=== PATIENT | male | born 1975 | race Caucasian/White ===

== ENCOUNTER → 2023-10-22 09:24 | Outpatient (REF) | payer MEDICAID, SELFPAY ==
[2023-10-22 09:50] VITALS: BP 120/87; BP_SYST 68
[2023-10-22 10:24] LABS: Body Fluid Mononuclear 88.2 %; Body Fluid Polymorphonuclear 11.8 %; Body Fluid WBC 119 /CUMM
[2023-10-22 10:31] LABS: Body Fluid Second Tech CMB
[2023-10-22 10:47] VITALS: BP 109/70
== END ==
LOC: RADI 09:24
PROVIDERS: ATTENDING PHYSICIAN Specialist
DX: R18.8 Other ascites (principal)
CPT/HCPCS: 49083; 87015; 87070; 87205; 89051

== ENCOUNTER → 2023-10-29 07:22 | Outpatient (REF) | payer MEDICAID, SELFPAY ==
[2023-10-29 07:44] VITALS: BP 121/76; BP_SYST 52
[2023-10-29 08:53] VITALS: BP 101/58
[2023-10-29 10:33] LABS: Body Fluid Mononuclear 83.1 %; Body Fluid Polymorphonuclear 16.9 %; Body Fluid WBC 89 /CUMM
[2023-10-29 10:34] LABS: Body Fluid Second Tech SS
== END ==
LOC: RADI 07:22
PROVIDERS: ATTENDING PHYSICIAN Specialist
DX: R18.8 Other ascites (principal)
CPT/HCPCS: 49083; 87015; 87070; 87205; 89051

== ENCOUNTER → 2023-11-05 07:23 | Outpatient (REF) | payer MEDICAID, SELFPAY ==
[2023-11-05 07:42] VITALS: BP 128/72; BP_SYST 55
[2023-11-05 08:47] VITALS: BP 111/53
[2023-11-05 08:50] LABS: Body Fluid Mononuclear 89.4 %; Body Fluid Polymorphonuclear 10.6 %; Body Fluid WBC 103 /CUMM
[2023-11-05 08:53] LABS: Body Fluid Second Tech SD
== END ==
LOC: RADI 07:23
PROVIDERS: ATTENDING PHYSICIAN Specialist
DX: R18.8 Other ascites (principal)
CPT/HCPCS: 49083; 87015; 87070; 87205; 89051

== ENCOUNTER → 2023-11-12 07:40 | Outpatient (REF) | payer SELFPAY ==
[2023-11-12 07:55] VITALS: BP 116/75; BP_SYST 47
[2023-11-12 09:45] VITALS: BP 104/60
[2023-11-12 09:51] LABS: Body Fluid Mononuclear 80.8 %; Body Fluid Polymorphonuclear 19.2 %; Body Fluid WBC 130 /CUMM
[2023-11-12 10:03] LABS: Body Fluid Second Tech EF
== END ==
LOC: RADI 07:40
PROVIDERS: ATTENDING PHYSICIAN Specialist
DX: R18.8 Other ascites (principal)
CPT/HCPCS: 49083; 87015; 87070; 87205; 89051

== ENCOUNTER 2023-11-12 09:57 | Outpatient (RCR) | payer SELFPAY ==
[2023-10-22 10:45] VITALS: BP 112/61
[2023-10-22] MEDS: FLEXBUMIN 50 IV (11:08)
[2023-10-22 11:14] VITALS: BP 105/57
[2023-10-22 11:59] VITALS: BP 101/51
[2023-10-22] MEDS: FLEXBUMIN 100 IV ×2 (11:59→13:26)
[2023-10-22 13:28] VITALS: BP 105/46
[2023-10-22 14:55] VITALS: BP 114/48
[2023-10-29 09:00] VITALS: BP 112/58
[2023-10-29 09:35] VITALS: BP 101/56
[2023-10-29] MEDS: FLEXBUMIN 100 IV ×2 (09:38→11:06)
[2023-10-29 11:07] VITALS: BP 106/49
[2023-10-29 12:23] VITALS: BP 125/62
[2023-10-29] MEDS: FLEXBUMIN 50 IV (12:24)
[2023-10-29 13:20] VITALS: BP 111/50
[2023-11-05 09:05] VITALS: BP 110/54
[2023-11-05] MEDS: FLEXBUMIN 100 IV (09:25)
[2023-11-05 09:28] VITALS: BP 110/4
[2023-11-05] MEDS: FLEXBUMIN 50 IV (10:50)
[2023-11-05 10:53] VITALS: BP 116/60
[2023-11-05 11:36] VITALS: BP 98/55
[2023-11-12] MEDS: FLEXBUMIN 50 IV (10:21)
[2023-11-12 10:25] VITALS: BP 99/52
[2023-11-12 10:27] VITALS: BP 99/52
[2023-11-12] MEDS: FLEXBUMIN 100 IV (11:06)
[2023-11-12 11:10] VITALS: BP 95/57
[2023-11-12 12:35] VITALS: BP 99/52
[2023-11-12 14:26] VITALS: BP 99/52
== END 2023-11-19 23:59 | disposition home or self-care (01) ==
LOC: OID 09:57
PROVIDERS: ATTENDING PHYSICIAN Nurse Practitioner Adult Health
DX: K70.31 Alcoholic cirrhosis of liver with ascites (principal)
CPT/HCPCS: 96365; 96366; P9047

== ENCOUNTER → 2023-11-19 07:08 | Outpatient (REF) | payer MEDICAID, SELFPAY ==
[2023-11-19 07:46] VITALS: BP 113/74; BP_SYST 60
[2023-11-19 08:30] VITALS: BP 104/52
[2023-11-19 09:11] LABS: Body Fluid WBC 147 /CUMM
[2023-11-19 09:12] LABS: Body Fluid Mononuclear 76.9 %; Body Fluid Polymorphonuclear 23.1 %; Body Fluid Second Tech SD
== END ==
LOC: RADI 07:08
PROVIDERS: ATTENDING PHYSICIAN Specialist
DX: R18.8 Other ascites (principal)
CPT/HCPCS: 49083; 87015; 87070; 87205; 89051

== ENCOUNTER → 2023-11-26 07:18 | Outpatient (REF) | payer MEDICAID, SELFPAY ==
[2023-11-26 08:58] LABS: % Basophils 0.7 % (0-2); % Eosinophils 2.4 % (0-6); % Immature Granulocytes 0.2 % (0-0.5); % Lymphocytes 31.9 % (20.5-51.1); % Neutrophils 52.8 % (42.2-75.2); Absolute Eosinophils 0.1 10^3/uL (0-0.7); Absolute Lymphocytes 1.8 10^3/uL (1.2-3.4); Absolute Monocytes 0.7 10^3/uL (0.1-0.6); Absolute Neutrophils 2.9 10^3/uL (1.4-6.5); Hematocrit 37.7 % (39.0-52.0); Hemoglobin 12.7 g/dL (13.0-18.0); Mean Corp Hgb Conc. 33.7 g/dL (33.0-37.0); Mean Corpuscular Hgb 24.7 pg (27.0-31.0); Mean Corpuscular Volume 73.3 fL (80.0-94.0); Nucleated Red Blood Cells % 0 % (-); Red Blood Cell Count 5.14 10^6/uL (4.70-6.10); Red Cell Dist. Width 24.5 % (11.5-14.5); White Blood Cell Count 5.5 10^3/uL (4.8-10.8)
[2023-11-26 09:07] LABS: INR 1.35; PT 16.8 Sec (11.4-14.6)
[2023-11-26 09:08] LABS: APTT 40.1 Sec (23.4-35.0)
[2023-11-26 09:34] LABS: Platelet Count 93 10^3/uL (130-400)
[2023-11-26 09:54] LABS: ALT (SGPT) < 10 U/L (0-50); AST (SGOT) 48 U/L (17-59); Albumin 2.9 g/dl (3.5-5.0); Alkaline Phosphatase 115 U/L (38-126); Blood Urea Nitrogen 7 mg/dl (9-20); Calcium 8.6 mg/dl (8.4-10.2); Carbon Dioxide 24 mmol/L (22-30); Chloride 105 mmol/L (98-107); Glucose 77 mg/dl (70-99); Potassium 4.1 mmol/L (3.5-5.1); Sodium 137 mmol/L (135-145); Total Protein 6.7 g/dl (6.3-8.2); eGFR > 60.00
[2023-11-26 09:56] VITALS: BP 131/80; BP_SYST 61
== END ==
LOC: RADI 07:18
PROVIDERS: ATTENDING PHYSICIAN Specialist
DX: R18.8 Other ascites (principal)
CPT/HCPCS: 36415; 49083; 80053; 82105; 85025; 85610; 85730

== ENCOUNTER → 2023-12-03 07:16 | Outpatient (REF) | payer SELFPAY ==
[2023-12-03 07:26] VITALS: BP 139/94; BP_SYST 65
[2023-12-03 08:37] VITALS: BP 122/68
[2023-12-03 09:52] LABS: Body Fluid Mononuclear 84.6 %; Body Fluid Polymorphonuclear 15.4 %; Body Fluid WBC 97 /CUMM
[2023-12-03 10:16] LABS: Body Fluid Second Tech CMB
== END ==
LOC: RADI 07:16
PROVIDERS: ATTENDING PHYSICIAN Specialist
DX: R18.8 Other ascites (principal)
CPT/HCPCS: 49083; 87015; 87070; 87205; 89051

== ENCOUNTER → 2023-12-10 07:35 | Outpatient (REF) | payer MEDICAID, SELFPAY ==
[2023-12-10 07:49] VITALS: BP 145/93; BP_SYST 79
[2023-12-10 08:50] VITALS: BP 124/79; BP_SYST 68
[2023-12-10 08:55] VITALS: BP 124/79
[2023-12-10 09:39] LABS: Body Fluid Mononuclear 83.9 %; Body Fluid Polymorphonuclear 16.1 %; Body Fluid WBC 112 /CUMM
[2023-12-10 09:57] LABS: Body Fluid Second Tech LD
== END ==
LOC: RADI 07:35
PROVIDERS: ATTENDING PHYSICIAN Specialist
DX: R18.8 Other ascites (principal)
CPT/HCPCS: 49083; 89051

== ENCOUNTER → 2023-12-17 07:17 | Outpatient (REF) | payer MEDICAID, SELFPAY ==
[2023-12-17 08:00] VITALS: BP 134/86; BP_SYST 77
[2023-12-17 09:17] VITALS: BP 126/76; BP_SYST 77
[2023-12-17 12:00] LABS: Body Fluid Mononuclear 20.9 %; Body Fluid Polymorphonuclear 79.1 %; Body Fluid WBC 1332 /CUMM
[2023-12-17 12:15] LABS: Body Fluid Second Tech SS
== END ==
LOC: RADI 07:17
PROVIDERS: Internal Medicine Endocrinology, Diabetes & Metabolism; ATTENDING PHYSICIAN Specialist
DX: R18.8 Other ascites (principal)
CPT/HCPCS: 49083; 89051

== ENCOUNTER 2023-12-17 09:18 | Outpatient (RCR) | payer MEDICAID, SELFPAY ==
[2023-11-26 10:46] LABS: Body Fluid Polymorphonuclear 20.4 %; Body Fluid WBC 103 /CUMM
[2023-11-26 10:47] LABS: Body Fluid Mononuclear 79.6 %
[2023-11-26 11:49] LABS: Body Fluid Second Tech EM
[2023-12-03 09:14] VITALS: BP 126/64
[2023-12-03] MEDS: FLEXBUMIN 50 IV (09:14)
[2023-12-03 09:17] VITALS: BP 126/64
[2023-12-03] MEDS: FLEXBUMIN 100 IV ×2 (10:01→11:19)
[2023-12-03 10:04] VITALS: BP 107/58
[2023-12-03 11:21] VITALS: BP 119/48
[2023-12-03 12:42] VITALS: BP 105/51
[2023-12-10 09:15] VITALS: BP 142/74
[2023-12-10] MEDS: FLEXBUMIN 50 IV (09:28)
[2023-12-10 09:35] VITALS: BP 125/7
[2023-12-10 10:18] VITALS: BP 113/66
[2023-12-10] MEDS: FLEXBUMIN 100 IV ×2 (10:18→11:56)
[2023-12-10 11:57] VITALS: BP 114/66
[2023-12-10 13:25] VITALS: BP 106/62
[2023-12-17 09:30] VITALS: BP 96/72
[2023-12-17] MEDS: FLEXBUMIN 50 IV (09:42)
[2023-12-17 09:45] VITALS: BP 96/72
[2023-12-17] MEDS: FLEXBUMIN 100 IV ×2 (10:27→11:53)
[2023-12-17 10:29] VITALS: BP 129/61
[2023-12-17 11:54] VITALS: BP 120/59
[2023-12-17 13:18] VITALS: BP 137/78
== END 2023-12-20 23:59 | disposition home or self-care (01) ==
LOC: OID 09:18
PROVIDERS: Specialist; ATTENDING PHYSICIAN Nurse Practitioner Adult Health
DX: K70.31 Alcoholic cirrhosis of liver with ascites (principal)
CPT/HCPCS: 87015; 87070; 87205; 89051; 96365; 96366; P9047

== ENCOUNTER → 2023-12-24 07:16 | Outpatient (REF) | payer MEDICAID, SELFPAY ==
[2023-12-24 08:45] VITALS: BP 144/86; BP_SYST 85
[2023-12-24 10:09] VITALS: BP 129/83; BP_SYST 75
[2023-12-24 11:19] LABS: Body Fluid Mononuclear 91.5 %; Body Fluid Polymorphonuclear 8.5 %; Body Fluid WBC 94 /CUMM
[2023-12-24 11:20] LABS: Body Fluid Second Tech EM
== END ==
LOC: RADI 07:16
PROVIDERS: ATTENDING PHYSICIAN Specialist
DX: R18.8 Other ascites (principal)
CPT/HCPCS: 49083; 89051

== ENCOUNTER → 2023-12-31 07:13 | Outpatient (REF) | payer MEDICAID, SELFPAY ==
[2023-12-31 07:45] VITALS: BP 142/95; BP_SYST 86
[2023-12-31 09:02] VITALS: BP 125/74
[2023-12-31 09:28] LABS: Body Fluid Mononuclear 87.8 %; Body Fluid Polymorphonuclear 12.2 %; Body Fluid WBC 107 /CUMM
[2023-12-31 09:31] LABS: Body Fluid Second Tech HB
== END ==
LOC: RADI 07:13
PROVIDERS: ATTENDING PHYSICIAN Specialist
DX: R18.8 Other ascites (principal)
CPT/HCPCS: 49083; 89051

== ENCOUNTER → 2024-01-07 07:26 | Outpatient (REF) | payer MEDICAID, SELFPAY ==
[2024-01-07 07:40] VITALS: BP 131/84; BP_SYST 63
[2024-01-07 08:45] VITALS: BP 120/79; BP_SYST 66
[2024-01-07 08:47] LABS: Body Fluid Mononuclear 93.5 %; Body Fluid Polymorphonuclear 6.5 %; Body Fluid WBC 123 /CUMM
[2024-01-07 08:48] LABS: Body Fluid Second Tech LD
[2024-01-07 09:03] VITALS: BP 120/79
== END ==
LOC: RADI 07:26
PROVIDERS: ATTENDING PHYSICIAN Specialist
DX: R18.8 Other ascites (principal)
CPT/HCPCS: 49083; 89051

== ENCOUNTER → 2024-01-14 07:14 | Outpatient (REF) | payer MEDICAID, SELFPAY ==
[2024-01-14 07:30] VITALS: BP 167/94; BP_SYST 89
[2024-01-14 08:36] VITALS: BP 130/99
[2024-01-14 08:59] LABS: Body Fluid Mononuclear 93.5 %; Body Fluid Polymorphonuclear 6.5 %; Body Fluid WBC 107 /CUMM
[2024-01-14 13:15] LABS: Body Fluid Second Tech EM
== END ==
LOC: RADI 07:14
PROVIDERS: ATTENDING PHYSICIAN Specialist
DX: R18.8 Other ascites (principal)
CPT/HCPCS: 49083; 87015; 87070; 87205; 89051

== ENCOUNTER 2024-01-14 08:52 | Outpatient (RCR) | payer MEDICAID, SELFPAY ==
[2023-12-24 10:30] VITALS: BP 133/75
[2023-12-24] MEDS: FLEXBUMIN 100 IV ×2 (10:38→12:06)
[2023-12-24 12:09] VITALS: BP 129/58
[2023-12-24] MEDS: FLEXBUMIN 50 IV (13:32)
[2023-12-24 13:33] VITALS: BP 122/64
[2023-12-24 14:36] VITALS: BP 123/62
[2023-12-31 09:25] VITALS: BP 142/58
[2023-12-31 09:32] VITALS: BP 142/58
[2023-12-31] MEDS: FLEXBUMIN 50 IV (09:32)
[2023-12-31 10:18] VITALS: BP 110/53
[2023-12-31] MEDS: FLEXBUMIN 100 IV ×2 (10:18→11:41)
[2023-12-31 11:41] VITALS: BP 116/58
[2023-12-31 13:15] VITALS: BP 114/55
[2024-01-07 09:00] VITALS: BP 128/76
[2024-01-07 09:10] VITALS: BP 128/76
[2024-01-07] MEDS: FLEXBUMIN 50 IV (09:10)
[2024-01-07] MEDS: FLEXBUMIN 100 IV ×2 (10:02→11:20)
[2024-01-07 10:03] VITALS: BP 120/61
[2024-01-07 11:23] VITALS: BP 104/50
[2024-01-07 12:45] VITALS: BP 94/60
[2024-01-14] MEDS: FLEXBUMIN 50 IV (09:22)
[2024-01-14 09:25] VITALS: BP 133/74
[2024-01-14] MEDS: FLEXBUMIN 100 IV ×2 (10:08→11:35)
[2024-01-14 10:09] VITALS: BP 133/53
[2024-01-14 11:30] VITALS: BP 121/58
[2024-01-14 13:00] VITALS: BP 133/67
== END 2024-01-15 08:24 | disposition home or self-care (01) ==
LOC: OID 08:52
PROVIDERS: ATTENDING PHYSICIAN Nurse Practitioner Adult Health
DX: K70.31 Alcoholic cirrhosis of liver with ascites (principal); I85.11 Secondary esophageal varices with bleeding
CPT/HCPCS: 96365; 96366; P9047

== ENCOUNTER → 2024-01-21 07:20 | Outpatient (REF) | payer MEDICAID, SELFPAY ==
[2024-01-21 08:31] VITALS: BP 135/87; BP_SYST 76
[2024-01-21 09:40] VITALS: BP 123/61
[2024-01-21 10:27] LABS: Body Fluid WBC 125 /CUMM
[2024-01-21 10:28] LABS: Body Fluid Mononuclear 91.2 %; Body Fluid Polymorphonuclear 8.8 %
[2024-01-21 10:29] LABS: Body Fluid Second Tech HB
== END ==
LOC: RADI 07:20
PROVIDERS: ATTENDING PHYSICIAN Specialist
DX: R18.8 Other ascites (principal)
CPT/HCPCS: 49083; 89051

== ENCOUNTER → 2024-01-28 07:25 | Outpatient (REF) | payer OTHER, SELFPAY ==
[2024-01-28 07:37] VITALS: BP 140/66; BP_SYST 83
[2024-01-28 08:39] VITALS: BP 132/81
[2024-01-28 09:45] LABS: Body Fluid Mononuclear 93.5 %; Body Fluid Polymorphonuclear 6.5 %; Body Fluid WBC 154 /CUMM
[2024-01-28 09:58] LABS: Body Fluid Second Tech AMA
== END ==
LOC: RADI 07:25
PROVIDERS: ATTENDING PHYSICIAN Specialist
DX: R18.8 Other ascites (principal)
CPT/HCPCS: 49083; 89051

== ENCOUNTER → 2024-02-04 07:42 | Outpatient (REF) | payer OTHER, SELFPAY ==
[2024-02-04 08:00] VITALS: BP 138/83; BP_SYST 80
[2024-02-04 10:41] LABS: Body Fluid Mononuclear 83.5 %; Body Fluid Polymorphonuclear 16.5 %; Body Fluid WBC 91 /CUMM
[2024-02-04 11:06] LABS: Body Fluid Second Tech JKH
== END ==
LOC: RADI 07:42
PROVIDERS: ATTENDING PHYSICIAN Specialist
DX: R18.8 Other ascites (principal)
CPT/HCPCS: 49083; 89051

== ENCOUNTER → 2024-02-11 07:11 | Outpatient (REF) | payer OTHER, SELFPAY ==
[2024-02-11 07:37] VITALS: BP 117/79; BP_SYST 76
[2024-02-11 08:42] VITALS: BP 113/66; BP_SYST 70
[2024-02-11 08:51] LABS: Body Fluid Mononuclear 83.3 %; Body Fluid Polymorphonuclear 16.7 %; Body Fluid WBC 126 /CUMM
[2024-02-11 08:52] LABS: Body Fluid Second Tech CF
== END ==
LOC: RADI 07:11
PROVIDERS: ATTENDING PHYSICIAN Specialist
DX: R18.8 Other ascites (principal)
CPT/HCPCS: 49083; 89051

== ENCOUNTER → 2024-02-18 07:09 | Outpatient (REF) | payer OTHER, SELFPAY ==
[2024-02-18 04:00] VITALS: BP 122/82; BP_SYST 71
[2024-02-18 08:46] VITALS: BP 124/63
[2024-02-18 09:54] LABS: Body Fluid Mononuclear 89.7 %; Body Fluid Polymorphonuclear 10.3 %; Body Fluid WBC 126 /CUMM
[2024-02-18 09:55] LABS: Body Fluid Second Tech AMA
== END ==
LOC: RADI 07:09
PROVIDERS: ATTENDING PHYSICIAN Specialist
DX: R18.8 Other ascites (principal)
CPT/HCPCS: 49083; 89051

== ENCOUNTER 2024-02-18 08:46 | Outpatient (RCR) | payer OTHER, SELFPAY ==
[2024-01-21 10:00] VITALS: BP 93/72
[2024-01-21 10:12] VITALS: BP 93/72
[2024-01-21 10:13] LABS: % Basophils 0.4 % (0-2); % Eosinophils 1.1 % (0-6); % Immature Granulocytes 0.2 % (0-0.5); % Lymphocytes 23.5 % (20.5-51.1); % Monocytes 12.2 % (1.7-9.3); % Neutrophils 62.6 % (42.2-75.2); Absolute Eosinophils 0.1 10^3/uL (0-0.7); Absolute Lymphocytes 1.3 10^3/uL (1.2-3.4); Absolute Monocytes 0.7 10^3/uL (0.1-0.6); Absolute Neutrophils 3.5 10^3/uL (1.4-6.5); Hematocrit 34.6 % (39.0-52.0); Hemoglobin 11.4 g/dL (13.0-18.0); Mean Corp Hgb Conc. 32.9 g/dL (33.0-37.0); Mean Corpuscular Hgb 24.9 pg (27.0-31.0); Mean Corpuscular Volume 75.5 fL (80.0-94.0); Mean Platelet Volume 8.9 fL (7.4-10.4); Platelet Count 86 10^3/uL (130-400); Red Blood Cell Count 4.58 10^6/uL (4.70-6.10); Red Cell Dist. Width 15.2 % (11.5-14.5); White Blood Cell Count 5.7 10^3/uL (4.8-10.8)
[2024-01-21] MEDS: FLEXBUMIN 50 IV (10:13)
[2024-01-21 10:51] LABS: INR 1.57; PT 18.9 Sec (11.4-14.6)
[2024-01-21] MEDS: FLEXBUMIN 100 IV (10:57)
[2024-01-21 10:58] VITALS: BP 105/55
[2024-01-21 11:09] LABS: ALT (SGPT) 10 U/L (0-50); AST (SGOT) 57 U/L (17-59); Albumin 2.9 g/dl (3.5-5.0); Alkaline Phosphatase 94 U/L (38-126); Calcium 8.3 mg/dl (8.4-10.2); Carbon Dioxide 29 mmol/L (22-30); Chloride 99 mmol/L (98-107); Glucose 101 mg/dl (70-99); Potassium 3.7 mmol/L (3.5-5.1); Sodium 130 mmol/L (135-145); Total Bilirubin 1.3 mg/dl (0.2-1.3); Total Protein 6.4 g/dl (6.3-8.2); eGFR > 60.00
[2024-01-21 11:14] LABS: Blood Urea Nitrogen 15 mg/dl (9-20)
[2024-01-21 12:20] VITALS: BP 118/51
[2024-02-04 09:15] VITALS: BP 119/57
[2024-02-04] MEDS: FLEXBUMIN 100 IV ×2 (09:29→10:47)
[2024-02-04 09:30] VITALS: BP 119/57
[2024-02-04 10:49] VITALS: BP 119/47
[2024-02-04 12:13] VITALS: BP 112/53
[2024-02-04] MEDS: FLEXBUMIN 50 IV (12:13)
[2024-02-04 12:58] VITALS: BP 111/51
[2024-02-11] MEDS: FLEXBUMIN 50 IV (08:44)
[2024-02-11 08:47] VITALS: BP 117/57
[2024-02-11] MEDS: FLEXBUMIN 100 IV (09:27)
[2024-02-11 09:29] VITALS: BP 106/54
[2024-02-11 10:55] VITALS: BP 112/45
[2024-02-18 09:00] VITALS: BP 129/73
[2024-02-18] MEDS: FLEXBUMIN 100 IV ×2 (09:16→10:45)
[2024-02-18 09:17] VITALS: BP 120/73
[2024-02-18 10:43] VITALS: BP 110/55
[2024-02-18] MEDS: FLEXBUMIN 50 IV (12:11)
[2024-02-18 12:13] VITALS: BP 110/51
[2024-02-18 12:55] VITALS: BP 112/58
== END 2024-02-19 09:43 | disposition home or self-care (01) ==
LOC: OID 08:46
PROVIDERS: Specialist; ATTENDING PHYSICIAN Nurse Practitioner Adult Health
DX: K70.31 Alcoholic cirrhosis of liver with ascites (principal); I85.11 Secondary esophageal varices with bleeding
CPT/HCPCS: 36415; 80053; 85025; 85610; 96365; 96366; P9047

== ENCOUNTER → 2024-02-26 06:46 | Outpatient (REF) | payer OTHER, SELFPAY ==
[2024-02-26 07:25] VITALS: BP 159/93; BP_SYST 80
[2024-02-26 08:24] VITALS: BP 139/77; BP_SYST 73
[2024-02-26 08:47] VITALS: BP 139/77
[2024-02-26 09:39] LABS: Body Fluid Mononuclear 91.4 %; Body Fluid Polymorphonuclear 8.6 %; Body Fluid WBC 128 /CUMM
[2024-02-26 09:47] LABS: Body Fluid Second Tech AMA
== END ==
LOC: RADI 06:46
PROVIDERS: ATTENDING PHYSICIAN Specialist
DX: K70.31 Alcoholic cirrhosis of liver with ascites (principal)
CPT/HCPCS: 49083; 89051

== ENCOUNTER → 2024-03-03 07:24 | Outpatient (REF) | payer OTHER, SELFPAY ==
[2024-03-03 07:40] VITALS: BP 132/76; BP_SYST 87
[2024-03-03 09:15] VITALS: BP 121/64
[2024-03-03 10:29] LABS: Body Fluid Mononuclear 93.3 %; Body Fluid Polymorphonuclear 6.7 %; Body Fluid WBC 177 /CUMM
[2024-03-03 10:51] LABS: Body Fluid Second Tech AMA
== END ==
LOC: RADI 07:24
PROVIDERS: ATTENDING PHYSICIAN Specialist
DX: R18.8 Other ascites (principal)
CPT/HCPCS: 49083; 89051

== ENCOUNTER → 2024-03-10 07:26 | Outpatient (REF) | payer OTHER, SELFPAY ==
[2024-03-10 07:44] VITALS: BP 147/91; BP_SYST 102
[2024-03-10 08:52] VITALS: BP 127/76
[2024-03-10 10:37] LABS: Body Fluid Mononuclear 93.1 %; Body Fluid Polymorphonuclear 6.9 %; Body Fluid WBC 116 /CUMM
[2024-03-10 10:40] LABS: Body Fluid Second Tech AMA
== END ==
LOC: RADI 07:26
PROVIDERS: ATTENDING PHYSICIAN Specialist
DX: R18.8 Other ascites (principal)
CPT/HCPCS: 49083; 89051

== ENCOUNTER → 2024-03-17 07:23 | Outpatient (REF) | payer OTHER, SELFPAY ==
[2024-03-17 07:45] VITALS: BP 118/77; BP_SYST 81
[2024-03-17 08:33] VITALS: BP 126/65
[2024-03-17 09:46] LABS: Body Fluid Mononuclear 89.1 %; Body Fluid Polymorphonuclear 10.9 %; Body Fluid WBC 119 /CUMM
[2024-03-17 09:48] LABS: Body Fluid Second Tech AMA
== END ==
LOC: RADI 07:23
PROVIDERS: ATTENDING PHYSICIAN Specialist
DX: R18.8 Other ascites (principal)
CPT/HCPCS: 49083; 87015; 87070; 87205; 89051

== ENCOUNTER 2024-03-17 09:07 | Outpatient (RCR) | payer OTHER, SELFPAY ==
[2024-02-26] MEDS: FLEXBUMIN 50 IV (08:58)
[2024-02-26 08:59] VITALS: BP 136/74
[2024-02-26] MEDS: FLEXBUMIN 100 IV ×2 (09:44→11:20)
[2024-02-26 09:46] VITALS: BP 82/55
[2024-02-26 11:20] VITALS: BP 124/64
[2024-02-26 12:42] VITALS: BP 121/61
[2024-03-03 09:40] VITALS: BP 136/75
[2024-03-03] MEDS: FLEXBUMIN 100 IV (09:48)
[2024-03-03 09:51] VITALS: BP 136/75
[2024-03-03] MEDS: FLEXBUMIN 50 IV (11:18)
[2024-03-03 11:20] VITALS: BP 109/63
[2024-03-03 12:00] VITALS: BP 119/59
[2024-03-10 09:14] VITALS: BP 133/77
[2024-03-10 09:18] VITALS: BP 133/77
[2024-03-10] MEDS: FLEXBUMIN 100 IV (09:18)
[2024-03-10] MEDS: FLEXBUMIN 50 IV (10:47)
[2024-03-10 10:48] VITALS: BP 121/64
[2024-03-10 11:30] VITALS: BP 124/56
[2024-03-17] MEDS: FLEXBUMIN 100 IV (09:27)
[2024-03-17 09:32] VITALS: BP 119/64
[2024-03-17 09:40] VITALS: BP 125/64
[2024-03-17 11:12] VITALS: BP 117/42
[2024-03-17] MEDS: FLEXBUMIN 50 IV (11:13)
[2024-03-17 12:10] VITALS: BP 110/49
== END 2024-03-18 11:38 | disposition home or self-care (01) ==
LOC: OID 09:07
PROVIDERS: ATTENDING PHYSICIAN Nurse Practitioner Adult Health
DX: K70.31 Alcoholic cirrhosis of liver with ascites (principal); I85.11 Secondary esophageal varices with bleeding
CPT/HCPCS: 96365; 96366; P9047

== ENCOUNTER → 2024-03-25 07:11 | Outpatient (REF) | payer OTHER, SELFPAY ==
[2024-03-25 07:38] VITALS: BP 134/87; BP_SYST 84
[2024-03-25 08:40] VITALS: BP 131/80
[2024-03-25 11:07] LABS: Body Fluid Mononuclear 93.9 %; Body Fluid Polymorphonuclear 6.1 %; Body Fluid WBC 82 /CUMM
[2024-03-25 11:14] LABS: Body Fluid Second Tech AMA
== END ==
LOC: RADI 07:11
PROVIDERS: ATTENDING PHYSICIAN Specialist
DX: R18.8 Other ascites (principal)
CPT/HCPCS: 49083; 87015; 87070; 87205; 89051

== ENCOUNTER → 2024-03-31 07:25 | Outpatient (REF) | payer OTHER, SELFPAY ==
[2024-03-31 07:54] VITALS: BP 137/90; BP_SYST 80
[2024-03-31 08:10] LABS: % Basophils 0.8 % (0-2); % Eosinophils 1.7 % (0-6); % Immature Granulocytes 0.3 % (0-0.5); % Lymphocytes 28.2 % (20.5-51.1); % Monocytes 13.4 % (1.7-9.3); % Neutrophils 55.6 % (42.2-75.2); Absolute Basophils 0.1 10^3/uL (0-0.2); Absolute Eosinophils 0.1 10^3/uL (0-0.7); Hematocrit 31.1 % (39.0-52.0); Hemoglobin 9.2 g/dL (13.0-18.0); Mean Corp Hgb Conc. 29.6 g/dL (33.0-37.0); Mean Corpuscular Hgb 19.8 pg (27.0-31.0); Mean Platelet Volume 9.1 fL (7.4-10.4); Nucleated Red Blood Cells % 0 % (-); Platelet Count 146 10^3/uL (130-400); Red Blood Cell Count 4.64 10^6/uL (4.70-6.10); Red Cell Dist. Width 18.5 % (11.5-14.5); White Blood Cell Count 7.1 10^3/uL (4.8-10.8)
[2024-03-31 08:18] LABS: APTT 36.9 Sec (23.4-35.0); INR 1.48
[2024-03-31 08:44] LABS: ALT (SGPT) < 10 U/L (0-50); AST (SGOT) 43 U/L (17-59); Albumin 3.2 g/dl (3.5-5.0); Alkaline Phosphatase 101 U/L (38-126); Blood Urea Nitrogen 9 mg/dl (9-20); Calcium 8.6 mg/dl (8.4-10.2); Carbon Dioxide 27 mmol/L (22-30); Chloride 99 mmol/L (98-107); Glucose 116 mg/dl (70-99); Potassium 4.3 mmol/L (3.5-5.1); Sodium 133 mmol/L (135-145); Total Bilirubin 1.1 mg/dl (0.2-1.3); Total Protein 6.7 g/dl (6.3-8.2); eGFR > 60.00
[2024-03-31 09:20] VITALS: BP 112/60
[2024-03-31 10:23] LABS: Body Fluid Mononuclear 88.8 %; Body Fluid Polymorphonuclear 11.2 %; Body Fluid WBC 116 /CUMM
[2024-03-31 10:27] LABS: Body Fluid Second Tech AMA
== END ==
LOC: RADI 07:25
PROVIDERS: ATTENDING PHYSICIAN Specialist
DX: R18.8 Other ascites (principal)
CPT/HCPCS: 36415; 49083; 80053; 85025; 85610; 85730; 87015; 87070; 87205; 89051; P9047

== ENCOUNTER → 2024-04-07 07:45 | Outpatient (REF) | payer OTHER, SELFPAY ==
[2024-04-07 08:06] VITALS: BP 128/87; BP_SYST 77
[2024-04-07 09:10] VITALS: BP 139/77
[2024-04-07 11:50] LABS: Body Fluid Mononuclear 93.4 %; Body Fluid Polymorphonuclear 6.6 %; Body Fluid WBC 136 /CUMM
[2024-04-07 11:52] LABS: Body Fluid Second Tech SS
== END ==
LOC: RADI 07:45
PROVIDERS: ATTENDING PHYSICIAN Specialist
DX: R18.8 Other ascites (principal)
CPT/HCPCS: 49083; 87015; 87070; 87205; 89051

== ENCOUNTER → 2024-04-14 07:08 | Outpatient (REF) | payer OTHER, SELFPAY ==
[2024-04-14 07:40] VITALS: BP 148/84; BP_SYST 80
[2024-04-14 08:52] VITALS: BP 136/74
[2024-04-14 09:57] LABS: Body Fluid Mononuclear 90.3 %; Body Fluid Polymorphonuclear 9.7 %; Body Fluid WBC 113 /CUMM
[2024-04-14 10:00] LABS: Body Fluid Second Tech EF
== END ==
LOC: RADI 07:08
PROVIDERS: ATTENDING PHYSICIAN Specialist
DX: R18.8 Other ascites (principal)
CPT/HCPCS: 49083; 87015; 87070; 87205; 89051

== ENCOUNTER 2024-04-14 08:56 | Outpatient (RCR) | payer OTHER, SELFPAY ==
[2024-03-25] MEDS: FLEXBUMIN 50 IV (09:47)
[2024-03-25 09:51] VITALS: BP 131/62
[2024-03-25] MEDS: FLEXBUMIN 100 IV ×2 (10:33→12:00)
[2024-03-25 10:37] VITALS: BP 98/54
[2024-03-25 12:02] VITALS: BP 116/53
[2024-03-25 13:30] VITALS: BP 113/53
[2024-03-31 09:40] VITALS: BP 123/62
[2024-03-31] MEDS: FLEXBUMIN 100 IV ×2 (09:47→11:15)
[2024-03-31 09:50] VITALS: BP 123/62
[2024-03-31 11:17] VITALS: BP 117/56
[2024-03-31 12:37] VITALS: BP 106/52
[2024-03-31] MEDS: FLEXBUMIN 50 IV (12:38)
[2024-03-31 13:30] VITALS: BP 116/48
[2024-04-07 09:30] VITALS: BP 136/68
[2024-04-07] MEDS: FLEXBUMIN 100 IV ×2 (09:34→11:00)
[2024-04-07 09:36] VITALS: BP 136/68
[2024-04-07 11:03] VITALS: BP 119/59
[2024-04-07] MEDS: FLEXBUMIN 50 IV (12:21)
[2024-04-07 12:24] VITALS: BP 110/4
[2024-04-07 13:10] VITALS: BP 112/50
[2024-04-14 09:00] VITALS: BP 128/62
[2024-04-14] MEDS: FLEXBUMIN 100 IV ×2 (09:19→10:59)
[2024-04-14 09:21] VITALS: BP 128/62
[2024-04-14 11:00] VITALS: BP 126/59
[2024-04-14 12:29] VITALS: BP 113/49
[2024-04-14] MEDS: FLEXBUMIN 50 IV (12:30)
[2024-04-14 13:12] VITALS: BP 137/48
== END 2024-04-15 08:35 | disposition home or self-care (01) ==
LOC: OID 08:56
PROVIDERS: ATTENDING PHYSICIAN Nurse Practitioner Adult Health
DX: K70.31 Alcoholic cirrhosis of liver with ascites (principal); I85.11 Secondary esophageal varices with bleeding
CPT/HCPCS: 96365; 96366; P9047

== ENCOUNTER → 2024-04-21 07:28 | Outpatient (REF) | payer OTHER, SELFPAY ==
[2024-04-21 08:13] VITALS: BP 132/75; BP_SYST 78
[2024-04-21 09:04] VITALS: BP 114/95
[2024-04-21 10:54] LABS: Body Fluid Mononuclear 91.9 %; Body Fluid Polymorphonuclear 8.1 %; Body Fluid WBC 111 /CUMM
[2024-04-21 10:56] LABS: Body Fluid Second Tech CMB
== END ==
LOC: RADI 07:28
PROVIDERS: ATTENDING PHYSICIAN Specialist
DX: R18.8 Other ascites (principal)
CPT/HCPCS: 49083; 87015; 87070; 87205; 89051

== ENCOUNTER → 2024-04-28 07:24 | Outpatient (REF) | payer OTHER, SELFPAY ==
[2024-04-28 07:37] VITALS: BP 137/92; BP_SYST 93
[2024-04-28 08:56] LABS: Body Fluid WBC 131 /CUMM
[2024-04-28 08:57] LABS: Body Fluid Mononuclear 91.6 %; Body Fluid Polymorphonuclear 8.4 %
[2024-04-28 09:16] LABS: Body Fluid Second Tech EM
== END ==
LOC: RADI 07:24
PROVIDERS: ATTENDING PHYSICIAN Specialist
DX: R18.8 Other ascites (principal)
CPT/HCPCS: 49083; 87015; 87070; 87205; 89051

== ENCOUNTER → 2024-05-05 07:23 | Outpatient (REF) | payer OTHER, SELFPAY ==
[2024-05-05 07:45] VITALS: BP 134/89; BP_SYST 102
[2024-05-05 08:31] VITALS: BP 133/78
[2024-05-05 09:01] LABS: Body Fluid Mononuclear 91.9 %; Body Fluid Polymorphonuclear 8.1 %; Body Fluid WBC 136 /CUMM
[2024-05-05 09:12] LABS: Body Fluid Second Tech AMA
== END ==
LOC: RADI 07:23
PROVIDERS: ATTENDING PHYSICIAN Specialist
DX: R18.8 Other ascites (principal)
CPT/HCPCS: 49083; 87015; 87070; 87205; 89051

== ENCOUNTER → 2024-05-12 07:11 | Outpatient (REF) | payer OTHER, SELFPAY ==
[2024-05-12 08:13] VITALS: BP 146/90; BP_SYST 87
[2024-05-12 09:25] VITALS: BP 120/75
[2024-05-12 11:18] LABS: Body Fluid Mononuclear 90.4 %; Body Fluid Polymorphonuclear 9.6 %; Body Fluid WBC 125 /CUMM
[2024-05-12 11:21] LABS: Body Fluid Second Tech CF
== END ==
LOC: RADI 07:11
PROVIDERS: ATTENDING PHYSICIAN Specialist
DX: R18.8 Other ascites (principal)
CPT/HCPCS: 49083; 87015; 87070; 87205; 89051

== ENCOUNTER → 2024-05-19 07:22 | Outpatient (REF) | payer OTHER, SELFPAY ==
[2024-05-19 07:45] VITALS: BP 135/79; BP_SYST 85
[2024-05-19 08:45] VITALS: BP 130/69
[2024-05-19 12:09] LABS: Body Fluid Mononuclear 91.9 %; Body Fluid Polymorphonuclear 8.1 %; Body Fluid WBC 135 /CUMM
[2024-05-19 12:31] LABS: Body Fluid Second Tech EM
== END ==
LOC: RADI 07:22
PROVIDERS: ATTENDING PHYSICIAN Specialist
DX: R18.8 Other ascites (principal)
CPT/HCPCS: 49083; 87015; 87070; 87205; 89051

== ENCOUNTER 2024-05-19 09:03 | Outpatient (RCR) | payer OTHER, SELFPAY ==
[2024-04-21 09:45] VITALS: BP 124/66
[2024-04-21] MEDS: FLEXBUMIN 100 IV (09:55)
[2024-04-21 09:57] VITALS: BP 124/66
[2024-04-21] MEDS: FLEXBUMIN 50 IV (11:18)
[2024-04-21 11:21] VITALS: BP 119/52
[2024-04-21 12:05] VITALS: BP 126/78
[2024-04-28 08:45] VITALS: BP 130/75
[2024-04-28] MEDS: FLEXBUMIN 100 IV ×2 (09:27→11:07)
[2024-04-28 09:34] VITALS: BP 130/75
[2024-04-28 11:09] VITALS: BP 100/71
[2024-04-28] MEDS: FLEXBUMIN 50 IV (12:43)
[2024-04-28 12:45] VITALS: BP 122/57
[2024-04-28 13:30] VITALS: BP 128/67
[2024-05-05 09:00] VITALS: BP 148/75
[2024-05-05 09:07] VITALS: BP 148/75
[2024-05-05] MEDS: FLEXBUMIN 100 IV ×2 (09:07→10:56)
[2024-05-05 10:57] VITALS: BP 136/64
[2024-05-05] MEDS: FLEXBUMIN 50 IV (12:39)
[2024-05-05 12:40] VITALS: BP 126/63
[2024-05-05 13:36] VITALS: BP 131/61
[2024-05-12] MEDS: FLEXBUMIN 50 IV (10:35)
[2024-05-12 10:40] VITALS: BP 123/78
[2024-05-12] MEDS: FLEXBUMIN 100 IV ×2 (11:30→13:17)
[2024-05-12 11:33] VITALS: BP 125/64
[2024-05-12 13:18] VITALS: BP 130/60
[2024-05-12 15:05] VITALS: BP 106/65
[2024-05-19 09:10] VITALS: BP 125/59
[2024-05-19] MEDS: FLEXBUMIN 100 IV ×2 (09:15→10:58)
[2024-05-19 09:16] VITALS: BP 125/59
[2024-05-19 09:30] VITALS: BP 125/59
[2024-05-19 11:01] VITALS: BP 103/47
[2024-05-19] MEDS: FLEXBUMIN 50 IV (12:38)
[2024-05-19 12:41] VITALS: BP 115/60
[2024-05-19 13:40] VITALS: BP 107/52
== END 2024-05-20 08:10 | disposition home or self-care (01) ==
LOC: OID 09:03
PROVIDERS: ATTENDING PHYSICIAN Nurse Practitioner Adult Health
DX: K70.31 Alcoholic cirrhosis of liver with ascites (principal); I85.11 Secondary esophageal varices with bleeding
CPT/HCPCS: 96365; 96366; P9047

== ENCOUNTER → 2024-05-26 07:18 | Outpatient (REF) | payer OTHER, SELFPAY ==
[2024-05-26 07:40] VITALS: BP 144/86; BP_SYST 79
[2024-05-26 08:35] VITALS: BP 129/67
[2024-05-26 10:50] LABS: Body Fluid Mononuclear 94.2 %; Body Fluid Polymorphonuclear 5.8 %; Body Fluid WBC 120 /CUMM
[2024-05-26 11:00] LABS: Body Fluid Second Tech ASW
== END ==
LOC: RADI 07:18
PROVIDERS: ATTENDING PHYSICIAN Specialist
DX: R18.8 Other ascites (principal)
CPT/HCPCS: 49083; 87015; 87070; 87205; 89051

== ENCOUNTER → 2024-06-02 07:23 | Outpatient (REF) | payer OTHER, SELFPAY ==
[2024-06-02 07:42] VITALS: BP 145/83; BP_SYST 79
[2024-06-02 08:31] LABS: Hematocrit 32.1 % (39.0-52.0); Mean Corpuscular Hgb 17.4 pg (27.0-31.0); Mean Corpuscular Volume 62.1 fL (80.0-94.0); Mean Platelet Volume 9.2 fL (7.4-10.4); Platelet Count 186 10^3/uL (130-400); Red Blood Cell Count 5.17 10^6/uL (4.70-6.10); Red Cell Dist. Width 21.5 % (11.5-14.5); White Blood Cell Count 6.9 10^3/uL (4.8-10.8)
[2024-06-02 08:33] LABS: INR 1.47; PT 17.9 Sec (11.4-14.6)
[2024-06-02 08:34] LABS: APTT 36.3 Sec (23.4-35.0)
[2024-06-02 09:04] VITALS: BP 130/74
[2024-06-02 09:08] LABS: ALT (SGPT) < 10 U/L (0-50); AST (SGOT) 57 U/L (17-59); Albumin 3.4 g/dl (3.5-5.0); Alkaline Phosphatase 104 U/L (38-126); Blood Urea Nitrogen 11 mg/dl (9-20); Calcium 8.5 mg/dl (8.4-10.2); Carbon Dioxide 29 mmol/L (22-30); Chloride 100 mmol/L (98-107); Glucose 100 mg/dl (70-99); Potassium 3.9 mmol/L (3.5-5.1); Sodium 139 mmol/L (135-145); eGFR > 60.00
[2024-06-02 09:30] LABS: Body Fluid Mononuclear 95.2 %; Body Fluid Polymorphonuclear 4.8 %; Body Fluid WBC 127 /CUMM
[2024-06-02 09:42] LABS: Body Fluid Second Tech RLT
== END ==
LOC: RADI 07:23
PROVIDERS: ATTENDING PHYSICIAN Specialist
DX: R18.8 Other ascites (principal)
CPT/HCPCS: 36415; 49083; 80053; 85027; 85610; 85730; 87015; 87070; 87205; 89051

== ENCOUNTER → 2024-06-09 07:14 | Outpatient (REF) | payer OTHER, SELFPAY ==
[2024-06-09 07:52] VITALS: BP 125/68; BP_SYST 85
[2024-06-09 09:00] VITALS: BP 138/76
[2024-06-09 10:47] LABS: Body Fluid Polymorphonuclear 6.9 %; Body Fluid WBC 146 /CUMM
[2024-06-09 10:48] LABS: Body Fluid Mononuclear 93.1 %
[2024-06-09 10:55] LABS: Body Fluid Second Tech BP
== END ==
LOC: RADI 07:14
PROVIDERS: ATTENDING PHYSICIAN Specialist
DX: R18.8 Other ascites (principal)
CPT/HCPCS: 49083; 87015; 87070; 87205; 89051

== ENCOUNTER → 2024-06-16 07:45 | Outpatient (REF) | payer OTHER, SELFPAY ==
[2024-06-16 08:05] VITALS: BP 143/90; BP_SYST 87
[2024-06-16 09:26] LABS: Body Fluid Mononuclear 92.1 %; Body Fluid Polymorphonuclear 7.9 %; Body Fluid WBC 139 /CUMM
[2024-06-16 09:30] LABS: Body Fluid Second Tech AMA
== END ==
LOC: RADI 07:45
PROVIDERS: ATTENDING PHYSICIAN Specialist
DX: R18.8 Other ascites (principal)
CPT/HCPCS: 49083; 87015; 87070; 87205; 89051

== ENCOUNTER 2024-06-16 09:07 | Outpatient (RCR) | payer OTHER, SELFPAY ==
[2024-05-26 08:45] VITALS: BP 134/71
[2024-05-26] MEDS: FLEXBUMIN 100 IV ×2 (09:01→10:50)
[2024-05-26 09:05] VITALS: BP 134/71
[2024-05-26 10:51] VITALS: BP 131/60
[2024-05-26] MEDS: FLEXBUMIN 50 IV (12:26)
[2024-05-26 12:29] VITALS: BP 115/65
[2024-05-26 13:20] VITALS: BP 109/51
[2024-06-02 09:40] VITALS: BP 137/68
[2024-06-02] MEDS: FLEXBUMIN 100 IV ×2 (09:53→11:43)
[2024-06-02 09:59] VITALS: BP 137/68
[2024-06-02 11:42] VITALS: BP 129/71
[2024-06-02] MEDS: FLEXBUMIN 50 IV (13:20)
[2024-06-02 13:21] VITALS: BP 136/61
[2024-06-02 14:15] VITALS: BP 121/54
[2024-06-09 09:25] VITALS: BP 132/62
[2024-06-09 09:32] VITALS: BP 132/88
[2024-06-09] MEDS: FLEXBUMIN 100 IV ×2 (09:32→11:18)
[2024-06-09 09:33] VITALS: BP 132/88
[2024-06-09 11:19] VITALS: BP 119/55
[2024-06-09] MEDS: FLEXBUMIN 50 IV (12:59)
[2024-06-09 13:01] VITALS: BP 115/63
[2024-06-09 13:54] VITALS: BP 115/53
[2024-06-16 09:20] VITALS: BP 120/75
[2024-06-16] MEDS: FLEXBUMIN 100 IV ×2 (09:36→11:19)
[2024-06-16 09:37] VITALS: BP 120/75
[2024-06-16 11:20] VITALS: BP 120/62
[2024-06-16] MEDS: FLEXBUMIN 50 IV (13:05)
[2024-06-16 13:06] VITALS: BP 128/63
[2024-06-16 14:10] VITALS: BP 127/64
== END 2024-06-17 09:47 | disposition home or self-care (01) ==
LOC: OID 09:07
PROVIDERS: ATTENDING PHYSICIAN Nurse Practitioner Adult Health
DX: K70.31 Alcoholic cirrhosis of liver with ascites (principal); I85.11 Secondary esophageal varices with bleeding
CPT/HCPCS: 96365; 96366; P9047

== ENCOUNTER → 2024-06-23 07:18 | Outpatient (REF) | payer OTHER, SELFPAY ==
[2024-06-23 07:49] VITALS: BP 134/81; BP_SYST 84
[2024-06-23 10:38] LABS: Body Fluid Mononuclear 94.6 %; Body Fluid Polymorphonuclear 5.4 %; Body Fluid WBC 111 /CUMM
[2024-06-23 10:52] LABS: Body Fluid Second Tech ASW
== END ==
LOC: RADI 07:18
PROVIDERS: ATTENDING PHYSICIAN Specialist
DX: R18.8 Other ascites (principal)
CPT/HCPCS: 49083; 87015; 87070; 87205; 89051

== ENCOUNTER → 2024-06-30 07:21 | Outpatient (REF) | payer OTHER, SELFPAY ==
[2024-06-30 07:45] VITALS: BP 128/80; BP_SYST 73
[2024-06-30 09:12] LABS: Body Fluid Mononuclear 94.3 %; Body Fluid Polymorphonuclear 5.7 %; Body Fluid WBC 158 /CUMM
[2024-06-30 09:15] LABS: Body Fluid Second Tech EM
== END ==
LOC: RADI 07:21
PROVIDERS: ATTENDING PHYSICIAN Specialist
DX: R18.8 Other ascites (principal)
CPT/HCPCS: 49083; 87015; 87070; 87205; 89051

== ENCOUNTER → 2024-07-07 07:13 | Outpatient (REF) | payer OTHER, SELFPAY ==
[2024-07-07 08:02] VITALS: BP 137/95; BP_SYST 73
[2024-07-07 08:35] VITALS: BP 128/81
[2024-07-07 09:09] LABS: Body Fluid Mononuclear 92.2 %; Body Fluid Polymorphonuclear 7.8 %; Body Fluid WBC 166 /CUMM
[2024-07-07 09:18] LABS: Body Fluid Second Tech CF
== END ==
LOC: RADI 07:13
PROVIDERS: ATTENDING PHYSICIAN Specialist
DX: R18.8 Other ascites (principal)
CPT/HCPCS: 49083; 87015; 87070; 87205; 89051; P9047

== ENCOUNTER → 2024-07-14 07:21 | Outpatient (REF) | payer OTHER, SELFPAY ==
[2024-07-14 07:35] VITALS: BP 142/91; BP_SYST 85
[2024-07-14 07:53] VITALS: BMI 28.1
[2024-07-14 08:39] VITALS: BP 129/82
[2024-07-14 08:52] VITALS: BMI 23.9
[2024-07-14 10:51] LABS: Body Fluid Mononuclear 88.4 %; Body Fluid Polymorphonuclear 11.6 %; Body Fluid WBC 172 /CUMM
[2024-07-14 11:39] LABS: Body Fluid Second Tech EF
== END ==
LOC: RADI 07:21
PROVIDERS: ATTENDING PHYSICIAN Specialist
DX: R18.8 Other ascites (principal)
CPT/HCPCS: 49083; 87015; 87070; 87205; 89051

== ENCOUNTER → 2024-07-21 07:19 | Outpatient (REF) | payer OTHER, SELFPAY ==
[2024-07-21 07:30] VITALS: BP 146/101; BP_SYST 99
[2024-07-21 08:22] VITALS: BP 140/80
[2024-07-21 09:02] LABS: Body Fluid Mononuclear 92.9 %; Body Fluid Polymorphonuclear 7.1 %; Body Fluid WBC 140 /CUMM
[2024-07-21 09:55] LABS: Body Fluid Second Tech AMA
== END ==
LOC: RADI 07:19
PROVIDERS: ATTENDING PHYSICIAN Specialist
DX: R18.8 Other ascites (principal)
CPT/HCPCS: 49083; 87015; 87070; 87205; 89051

== ENCOUNTER 2024-07-21 08:48 | Outpatient (RCR) | payer OTHER, SELFPAY ==
[2024-06-23] MEDS: FLEXBUMIN 100 IV ×2 (09:18→11:06)
[2024-06-23 09:21] VITALS: BP 129/68
[2024-06-23 09:32] VITALS: BP 129/68
[2024-06-23 11:07] VITALS: BP 127/65
[2024-06-23] MEDS: FLEXBUMIN 50 IV (12:49)
[2024-06-23 12:50] VITALS: BP 117/61
[2024-06-23 13:45] VITALS: BP 126/56
[2024-06-30] MEDS: FLEXBUMIN 100 IV ×2 (09:25→11:11)
[2024-06-30 09:27] VITALS: BP 138/79
[2024-06-30 11:13] VITALS: BP 126/56
[2024-06-30] MEDS: FLEXBUMIN 50 IV (12:53)
[2024-06-30 12:59] VITALS: BP 126/63
[2024-07-07 09:15] VITALS: BP 145/69
[2024-07-07] MEDS: FLEXBUMIN 100 IV ×2 (09:20→10:51)
[2024-07-07 09:22] VITALS: BP 145/69
[2024-07-07 10:53] VITALS: BP 131/64
[2024-07-07 12:37] VITALS: BP 117/60
[2024-07-07] MEDS: FLEXBUMIN 50 IV (12:37)
[2024-07-07 13:30] VITALS: BP 128/64
[2024-07-14 09:42] VITALS: BP 133/74
[2024-07-14] MEDS: FLEXBUMIN 50 IV (09:42)
[2024-07-14 10:35] VITALS: BP 110/60
[2024-07-14] MEDS: FLEXBUMIN 100 IV ×2 (10:35→12:15)
[2024-07-14 10:36] VITALS: BP 114/76
[2024-07-14 12:17] VITALS: BP 110/60
[2024-07-14 13:56] VITALS: BP 125/63
[2024-07-21 09:10] VITALS: BP 140/75
[2024-07-21] MEDS: FLEXBUMIN 100 IV (09:35)
[2024-07-21 09:40] VITALS: BP 140/75
[2024-07-21] MEDS: FLEXBUMIN 50 IV (11:22)
[2024-07-21 11:23] VITALS: BP 116/65
[2024-07-21 12:20] VITALS: BP 122/63
== END 2024-07-21 23:59 | disposition home or self-care (01) ==
LOC: OID 08:48
PROVIDERS: ATTENDING PHYSICIAN Nurse Practitioner Adult Health
DX: K70.31 Alcoholic cirrhosis of liver with ascites (principal); I85.11 Secondary esophageal varices with bleeding
CPT/HCPCS: 96365; 96366; P9047

== ENCOUNTER 2024-07-25 15:12 | Inpatient (IN) | payer OTHER, SELFPAY ==
[2024-07-25] VITALS (17 sets, daily range): BP systolic 106–137; BP diastolic 63–80; BMI 27.2; BMI 26.4
--- NOTE | 2024-07-25 13:07 | ED.GENMED ---
History of Present Illness
General
Chief Complaint: Rectal Bleeding
Source: patient
Exam Limitations: none
Time Seen by Provider: 07/25/24 12:55
Nursing documentation reviewed up to this point in time: agreed with
History of Present Illness
History of Present Illness:
Patient with history of liver cirrhosis, who receives weekly therapeutic paracentesis, presents to ED secondary to recurrent 'dark stool' with recent 3 bowel movements, which unfortunately has happened to the patient on multiple occasions. Patient
is complaining of lightheadedness and shortness of breath, more than his usual. Denies fever or chills. Denies abdominal pain. Denies nausea or vomiting. Denies recent change in medications or diet. Patient does not take any blood thinning
medications. Patient does state that his cat was jumping on top of his stomach this weekend and is wondering whether that may have caused the bleeding. Patient states that he was in the hospital 1 year ago with similar symptoms, when he required
blood transfusion.
Past History
Past History
ED Past Medical History: Psychiatric (Anxiety/depression, GI bleed) and Other (History of esophageal varices, liver cirrhosis)
ED Past Surgical History: None
Patient has exhibited threatening behavior?: No
Social History
Tobacco: Smoker
Alcohol: Chronic alcoholic
Drug: Former user
Personal: Other
Living: with family
Employment: Employed
Family History
Family History: Other
Review of Systems
Review of Systems
Allergies reviewed?: Yes
All Other Systems: ROS reviewed and negative except as documented in HPI and ROS
Constitutional: Reports no symptoms
Respiratory: Reports trouble breathing
Cardiac: Reports no symptoms; Denies chest pain or palpitations
ABD/GI: Reports bloody stools; Denies abdominal pain, vomiting or diarrhea
Musculoskeletal: Reports no symptoms
Skin: Reports no symptoms
Neurological: Reports dizzy
Phy Exam
Physical Exam
Physical Exam:
Physical Exam
General: mild distress, not acutely ill. afebrile
Head: nc/at. eomi. icteric sclera noted
Neck: supple. normal range of motion.
Heart: s1/s2 regular rate and rhythm, no murmur. equal radial pulses.
Lungs: no acute respiratory distress. clear bilaterally
Abdomen: normal bowel sounds. not tender. rectal exam (DELILAH Landeros, at bedside): dark brown stool, heme positive
Neuro: alert and oriented. no focal neurological deficits
Skin: no rash. jaundice
Psychiatric: well kept. interactive and cooperative
Extremities: no edema. no calf tenderness.
Course
Orders/Labs/Results
Orders:
Orders
07/25/24 Breakfast
NPO
Allow oral meds: Yes
Allow clear liquids: Sips of Clears
NPO with Ice Chips: Yes
07/25/24 13:07
Type+Screen Urgent
Complete Blood Count/With Diff Urgent
Comprehensive Metabolic Panel Urgent
Ferritin Urgent
Folate Urgent
Iron Urgent
Magnesium Urgent
Comment: MAG ADDED ON BY FLOOR 4:40PM 07-25-24
Protime/PTT Urgent
Total Iron Binding Urgent
Vitamin B12 Urgent
Comment: IRON,FERRITIN,TIBC,FOLATE,B12 ADDED ON BY FLOOR 2:50PM 07-25-24
07/25/24 14:08
* Blood Bank Products Urgent
Blood Bank Products: *Packed RBC Leuko(PRBC's)
Quantity: 2
Transfuse Today: Yes
Reason: Bleeding
Pantoprazole [Protonix IV] 40 mg IV NOW STA
07/25/24 14:09
IV Insert/Care/Rem.- Treatment PRN
07/25/24 14:35
CefTRIAXone [Rocephin] 1,000 mg IV NOW STA
Octreotide [Sandostatin] 50 mcg IV NOW STA
07/25/24 14:37
GASTROINTESTINAL CONSULT Routine
Consulting Provider: Cong Michaels
Was physician already notified: Yes
07/25/24 14:39
Sterile Water [Sterile Water For Injection] 10 ml IV NOW STA
07/25/24 14:49
Add On- LAB Routine
Tests Added?: iron, ferritin, tibc, folate, vit b12
07/25/24 14:50
CefTRIAXone [Rocephin] 1,000 mg IV NOW STA
07/25/24 14:54
Admit/Transfer Patient As Directed
Co-Sign Provider:
Level of Care: Inpatient admission
Assign to:: IMU- Intermediate Care
Physician / Group: Tamra
Diagnosis: GI Bleed
Reason for Hospitalization: Blood Transfuse, EGD
Expected length of stay greater than two midnights?: Yes
ELOS- Estimated Length of Stay in days: 3
I certify the patient meets the requirements for IP care: Yes
PRN Pain Medication Management As Directed
May give lesser potent ordered pain med per pt: Yes
preference::
Protocol:: Medication orders for pain may be administered in a
manner that supports deferring to patient preference
when the pt is:
- Requesting an ordered lesser potent pain medication.
Least to most potent pain medications are defined
as: acetaminophen < NSAID < tramadol < opioids
(morphine, oxycodone, hydromorphone).
- Requesting a lesser dose of the same medication IF
ORDERED.
- Requesting a less intrusive route of administration
if both routes are prescribed by the provider (PO <
IV).
07/25/24 14:55
Code Status As Directed
Resuscitation Status: Full Code
07/25/24 15:00
Flush (0.9% Sodium Chloride) [Flush (Nss)] See Dose Instructions IV PER PROTOCOL
Octreotide Acetate [Sandostatin] 600 mcg 0.9% Sodium Chloride 500 ml [Nss] 500 ml IV Q12H
07/25/24 15:02
Potassium Chloride 10% Elixir [KCl Elixir] 40 meq PO NOW STA
07/25/24 15:15
Pantoprazole 80 mg/100 ml Nss [Protonix] 80 mg in 100 ml IV Q10H
07/25/24 17:10
Acetaminophen [Tylenol] 650 mg PO Q4HPRN PRN
07/25/24 17:10
Activity As Directed
Activity Level: Out of Bed- Chair
With Assistance
I&O [Intake/ Output] As Directed
Frequency: q12h
Orthostatic Vital Signs As Directed
Orthostatic VS Frequency: BID
Pneumatic Compression Sleeves As Directed
Type: Knee high
Vital Signs As Directed
Frequency: Per unit guidelines
Weight As Directed
Frequency: Daily
DX Deep Vein Thrombosis Video Routine
07/25/24 19:00
H&H Q6H
07/25/24 20:00
Pantoprazole [Protonix IV] 40 mg IV Q12
07/26/24 01:00
H&H Q6H
07/26/24 06:00
Complete Blood Count/No Diff IN AM
Comprehensive Metabolic Panel IN AM
07/26/24 07:00
H&H Q6H
07/26/24 08:00
Buprenorphine [Subutex] 4 mg SL DAILY
07/26/24 13:00
H&H Q6H
07/26/24 14:00
CefTRIAXone [Rocephin] 1,000 mg IV Q24H
Abnormal Lab Results
07/25/24
13:07
RBC 3.67 L 10^6/uL
(4.70-6.10)
Hgb 6.7 L* g/dL
(13.0-18.0)
Hct 22.8 L %
(39.0-52.0)
MCV 62.1 L fL
(80.0-94.0)
MCH 18.3 L pg
(27.0-31.0)
MCHC 29.4 L g/dL
(33.0-37.0)
RDW 21.5 H %
(11.5-14.5)
Abs Immat Gran (auto) 0.1 H 10^3/uL
(0-0.05)
Absolute Lymphs (auto) 0.8 L 10^3/uL
(1.2-3.4)
Absolute Monos (auto) 1.0 H 10^3/uL
(0.1-0.6)
Immature Gran % 0.7 H %
(0-0.5)
Lymphocytes % 11.3 L %
(20.5-51.1)
Monocytes % 13.2 H %
(1.7-9.3)
PT 17.5 H Sec
(11.4-14.6)
Sodium 131 L mmol/L
(135-145)
Potassium 3.3 L mmol/L
(3.5-5.1)
Chloride 93 L mmol/L
(98-107)
Glucose 145 H mg/dl
(70-99)
Iron < 20 L ug/dl
(49-181)
Ferritin 11.0 L ng/ml
(17.9-464.0)
Total Bilirubin 2.0 H mg/dl
(0.2-1.3)
Albumin 3.3 L g/dl
(3.5-5.0)
Crossmatch IS Only See Detail
07/25/24 13:07
07/25/24 13:07
Vital Signs
Initial and Last Documented VS:
Initial Vital Signs
Temp Pulse Resp BP Pulse Ox
99.0 F 101 18 137/80 98
07/25/24 12:37 07/25/24 12:37 07/25/24 12:37 07/25/24 12:37 07/25/24 12:37
Last Documented Vital Signs
Temp Pulse Resp BP Pulse Ox
98.2 F 77 16 114/65 96
07/25/24 19:56 07/25/24 18:48 07/25/24 18:48 07/25/24 18:48 07/25/24 18:48
MDM/Problems Addressed
MDM/Problems Addressed:
H/H noted. Pt remains hemodynamically stable. Will transfuse.
Blood transfusion consent on the chart. Liver cirrhosis
Discussed with (GI) - recommends starting patient on octreotide/protonix gtt.
Critical care statement: A total of 40 minutes of critical care time was provided for this patient. This includes management of unstable vital signs, evaluation of the patient at bedside, reviewing the patient's pertinent medical records, discussion
with consultants, review of old EKGs and review of pertinent medical records. This time with separate from time utilized to perform the aforementioned documented procedures
*Critical Care Note
Total Time (30-74mins, 75-104mins- exclusive of procedures): 40 min
ED Attending Note
-
Portions of this chart may have been created with voice recognition software.� Occasional wrong word or��sound alike� substitutions may have occurred due to the inherent limitations of voice recognition software.
Discharge Plan
Departure
Patient Disposition: Admit
Date of Disposition: 07/25/24
Time of Disposition: 14:08
Presentation/result/management discussed w/ accepting MD/DO: Hospitalist
Discharge Problem:
GI bleed, Anemia
Interventions
Interventions:
*Risk Screen - Suicide Last Done: 07/25/24 12:40
*General Assessment Last Done: 07/25/24 12:40
*Neglect/Abuse Screening Last Done: 07/25/24 12:40
ED- Fall Risk Assessment Last Done: 07/25/24 13:00
*ED COVID-19 Vaccine History Last Done: 07/25/24 13:00
*Nursing Disposition Last Done: 07/25/24 17:10
JT-Tlggac-Dirwgaunfj Assessment Last Done: 07/25/24 13:00
ED- Cardiac Assessment Last Done: 07/25/24 13:00
ED- Pulmonary Assessment Last Done: 07/25/24 13:00
Discharge Date and Time
Discharge Date/Time: 07/25/24 17:10
[2024-07-25 13:32] LABS: INR 1.45; PT 17.5 Sec (11.4-14.6)
[2024-07-25 13:33] LABS: ALT (SGPT) 13 U/L (0-50); APTT 33.9 Sec (23.4-35.0); AST (SGOT) 55 U/L (17-59); Albumin 3.3 g/dl (3.5-5.0); Alkaline Phosphatase 102 U/L (38-126); Blood Urea Nitrogen 17 mg/dl (9-20); Calcium 8.5 mg/dl (8.4-10.2); Carbon Dioxide 25 mmol/L (22-30); Chloride 93 mmol/L (98-107); Estimated Creatinine Clearance > 125 ml/min; Glucose 145 mg/dl (70-99); Potassium 3.3 mmol/L (3.5-5.1); Sodium 131 mmol/L (135-145); Total Protein 7.1 g/dl (6.3-8.2); eGFR > 60.00
[2024-07-25 13:53] LABS: % Basophils 0.7 % (0-2); % Eosinophils 0.8 % (0-6); % Immature Granulocytes 0.7 % (0-0.5); % Lymphocytes 11.3 % (20.5-51.1); % Monocytes 13.2 % (1.7-9.3); % Neutrophils 73.3 % (42.2-75.2); Absolute Basophils 0.1 10^3/uL (0-0.2); Absolute Eosinophils 0.1 10^3/uL (0-0.7); Absolute Immature Granulocytes 0.1 10^3/uL (0-0.05); Absolute Lymphocytes 0.8 10^3/uL (1.2-3.4); Absolute Neutrophils 5.3 10^3/uL (1.4-6.5); Hematocrit 22.8 % (39.0-52.0); Hemoglobin 6.7 g/dL (13.0-18.0); Mean Corp Hgb Conc. 29.4 g/dL (33.0-37.0); Mean Corpuscular Hgb 18.3 pg (27.0-31.0); Mean Corpuscular Volume 62.1 fL (80.0-94.0); Nucleated Red Blood Cells % 0 % (-); Platelet Count 214 10^3/uL (130-400); Red Blood Cell Count 3.67 10^6/uL (4.70-6.10); Red Cell Dist. Width 21.5 % (11.5-14.5); White Blood Cell Count 7.2 10^3/uL (4.8-10.8)
[2024-07-25] MEDS: PROTONIX IV 40 MG IV ×2 (14:13→19:51)
--- NOTE | 2024-07-25 14:19 | HPS.HSE ---
Family Physician
-
Family Physician: * NONE
Chief Complaint
-
Black Stools with Shortness of Breath and Dizziness
History of Present Illness
Patient is a 49 y/o male past medical history of alcohol cirrhosis with ascites requiring weekly paracentesis, and esophageal varices s/p banding in 2021 who presents with black stools associated with shortness of breath and dizziness. Patient
report dark to black colored stools since Thursday. He notes shortness of breath and dizziness since yesterday. He denies abdominal pain, or fever.
Medical History
Past Medical History
Past Medical History: Reports Other
Additional Past Medical History:
Alcoholic Cirrhosis with Ascites
Esophageal Varices s/p Banding
Anxiety/Depression
Alcohol Use Disorder
Drug Abuse
Past Surgical History: Reports Other
Additional Past Surgical History:
Esophageal Banding
Testicular Torsion Surgery
Social History
Tobacco: Smoker (5 Cigarettes per Day)
Alcohol: Occasional (Patient reports some alcohol consumption on his birthday, and during the occasional football game)
Drug: Former User
Family History
Family History: Not pertinent
Allergies / Home Medications
Allergies reflects when Allergies were last updated in [facility].
Home Medications with original date entered in [facility]
Allergy/Medication List:
Allergies
Allergy/AdvReac Type Severity Reaction Status Date / Time
No Known Drug Allergies Allergy NONE Verified 07/25/24 12:36
Home Medications
escitalopram oxalate 20 mg tablet 20 mg PO DAILY depression/anxiety 11/15/21
buprenorphine 8 mg-naloxone 2 mg sublingual film 0.5 film sublingual DAILY BUBBA 05/06/22
furosemide 20 mg tablet 60 mg PO DAILY Fluid Retention/Swelling 10/29/23
spironolactone 50 mg tablet 150 mg PO DAILY Blood Pressure 10/29/23
acetaminophen 325 mg tablet (Tylenol) 650 mg PO Q6HPRN PRN mild pain 07/25/24
bisacodyl 10 mg rectal suppository (Dulcolax (bisacodyl)) 10 mg [place] DAILYPRN PRN constipaiton 07/25/24
bismuth subsalicylate 262 mg/15 mL oral suspension (Pepto-Bismol) 524 mg PO DAILYPRN PRN stomach issuses 07/25/24
thiamine HCl (vitamin B1) 100 mg tablet 100 mg PO BID Supplement 07/25/24
Review of Systems
-
A 12 point ROS was completed and negative except as noted: Yes
Constitutional: Denies Fever or Chills
Respiratory: Reports Trouble Breathing; Denies Cough
Cardiac: Denies Chest Pain or Palpitations
Abdomen/GI: Reports Abdominal Pain
Physical Exam
Vital Signs
Vital Signs
Temp Pulse Resp BP Pulse Ox
99.0 F 101 18 137/80 98
07/25/24 12:37 07/25/24 12:37 07/25/24 12:37 07/25/24 12:37 07/25/24 12:37
Physical Exam
General: Comfortable and Conversant
HEENT: NormoCephalic, Moist mucous membranes and Atraumatic
Respiratory: Clear and Non Labored Respirations
Cardiac: S1/S2 and Regular Rhythm
GI: Soft, Non Tender and Distended
Rectal: Hem Positive (Per ED Provider)
Musculoskeletal: No Clubbing, No Cyanosis and No Edema
Skin: Warm and Dry
Neuro: Awake, Alert, Oriented and Nonfocal/grossly intact
Psych: Calm
Laboratory Results
-
07/25/24 13:07
07/25/24 13:07
Laboratory Results
PT 17.5 Sec (11.4-14.6) H 07/25/24 13:07
INR 1.45 07/25/24 13:07
APTT 33.9 Sec (23.4-35.0) 07/25/24 13:07
Total Bilirubin 2.0 mg/dl (0.2-1.3) H 07/25/24 13:07
AST 55 U/L (17-59) 07/25/24 13:07
ALT 13 U/L (0-50) 07/25/24 13:07
Alkaline Phosphatase 102 U/L (38-126) 07/25/24 13:07
Data Reviewed
-
Lab Data: Labs Reviewed by me
Old Records: Reviewed
Impression/Plan
-
Acute Blood Loss Anemia secondary to GI Bleed
-Check iron studies
-Transfuse 2 units PRBCs
-Trend serial Hgb
GI Bleed, likely upper with clinical concern for variceal bleeding
-Consult GI
-Continue NPO
-Continue Protonix 40mg IV BID
-Continue Octreotide drip
-Continue Ceftriaxone
Alcoholic Cirrhosis with Ascites
-Diuretics on hold
-Monitor Is&Os and Daily Weights
Anxiety/Depression
-Hold Lexapro while NPO
Hx Drug Abuse
-Patient has been clean for over 15 years
-Continue Suboxone
DVT proph: SCDs
Code Status: Full Code
--- NOTE | 2024-07-25 14:21 | CON.GI ---
Consultation
-
Date/Time Consultation Requested: 07/25/24 14:37
Date/Time Consultation Performed: 07/25/24 14.51 pm
Requesting Provider: Emelyn Cabrera PA-C
Performing Provider: Beryl Erickson MD
Reason for Consultation: Melena
Medical History
Chief Complaint / HPI
Chief Complaint: Feeleing dissziness, SOB, melena
History of Present Illness:
The patient is a 49 year old male who presented to ER complaining from feeling dizzy, lightheadedness and SOB. Hgb level of the patient was found 6.7 at the admission. He has a PMH of alcoholic cirrhosis and EGV Grade II and abdominal ascites for
which he receives paracentesis weekly. He has also a history of hospitalization due UGI bleeding and was found EGV progressed at that time in 2021 with 5 banding. His colonoscopy results were not significant in 2021. He reports he started to have
dark/tarry stools since last Thursday and had roughly 2 dark colored bowel movement since Thursday. Reports his last dark color bowel movement was on this morning and it was in normal form. Denied having diarrhea, but endorsed having some softer stool
yesterday and today it is normal. Denied any bowel movement after he was admitted to the hospital. His rectal exam was obtained by ER physician which was hem positive but ER physician saw brown colored stool.The patient endorses some abdominal
discomfort, but denies vomiting, hematemesis or feeling nauseous.
Past Medical History
Past Medical History: Psychiatric (Anxiety/depression) and Other (History of esophageal varices, alcoholic liver cirrhosis, Alcohol Use Disorder, Hx of Drug Use, denies any anti-coagulation medication)
Past Surgical History: Other (Esophageal Banding, Testicular Torsion Surgery)
Social History
Tobacco: Smoker (5 Cigarettes per Day, Marijuana smokes )
Alcohol: Occasional
Drug: Other (Denies recent use )
Family History
Family History: Reviewed & Not Pertinent
Allergies / Home Medications
Allergy/AdvReac Type Severity Reaction Status Date / Time
No Known Drug Allergies Allergy NONE Verified 07/25/24 12:36
�Medication �Instructions �Recorded
escitalopram oxalate 20 mg tablet 20 mg PO DAILY depression/anxiety 11/15/21
buprenorphine 8 mg-naloxone 2 mg 0.5 film sublingual DAILY BUBBA 05/06/22
sublingual film
furosemide 20 mg tablet 60 mg PO DAILY Fluid 10/29/23
Retention/Swelling
spironolactone 50 mg tablet 150 mg PO DAILY Blood Pressure 10/29/23
acetaminophen 325 mg tablet 650 mg PO Q6HPRN PRN mild pain 07/25/24
(Tylenol)
bisacodyl 10 mg rectal suppository 10 mg [place] DAILYPRN PRN constipaiton 07/25/24
(Dulcolax (bisacodyl))
bismuth subsalicylate 262 mg/15 mL 524 mg PO DAILYPRN PRN stomach 07/25/24
oral suspension (Pepto-Bismol) issuses
thiamine HCl (vitamin B1) 100 mg 100 mg PO BID Supplement 07/25/24
tablet
Review of Systems
-
History Source: Patient
EENT: Reports No Symptoms
Respiratory: Reports Other (SOB if he stands up )
Cardiac: Reports Other (feels fast beating when stands up )
Abdomen/GI: Reports Other (feels chronic discomfort due abdominal ascites)
: Reports No Symptoms
Musculoskeletal: Reports No Symptoms
Neurological: Reports No Symptoms
Vital Signs
Temp Pulse Resp BP Pulse Ox
99.0 F 101 18 137/80 98
07/25/24 12:37 07/25/24 12:37 07/25/24 12:37 07/25/24 12:37 07/25/24 12:37
Physical Exam
Exam
General: Other (seems chronically ill )
HEENT: Normocephalic and Anicteric
Respiratory: Clear
Cardiac: S1/S2 and Regular Rhythm
GI: Soft and Distended (mild to moderate )
Musculoskeletal: No Clubbing, No Cyanosis and No Edema
Skin: Warm and Dry
Neuro: Awake, Alert, Oriented and AO x 3
Results
WBC 7.2 10^3/uL (4.8-10.8) 07/25/24 13:07
Hgb 6.7 g/dL (13.0-18.0) L* 07/25/24 13:07
Hct 22.8 % (39.0-52.0) L 07/25/24 13:07
MCV 62.1 fL (80.0-94.0) L 07/25/24 13:07
Plt Count 214 10^3/uL (130-400) 07/25/24 13:07
Absolute Neuts (auto) 5.3 10^3/uL (1.4-6.5) 07/25/24 13:07
PT 17.5 Sec (11.4-14.6) H 07/25/24 13:07
INR 1.45 07/25/24 13:07
APTT 33.9 Sec (23.4-35.0) 07/25/24 13:07
Sodium 131 mmol/L (135-145) L 07/25/24 13:07
Potassium 3.3 mmol/L (3.5-5.1) L 07/25/24 13:07
Chloride 93 mmol/L (98-107) L 07/25/24 13:07
Carbon Dioxide 25 mmol/L (22-30) 07/25/24 13:07
BUN 17 mg/dl (9-20) 07/25/24 13:07
Creatinine 0.7 mg/dL (0.7-1.3) 07/25/24 13:07
Calcium 8.5 mg/dl (8.4-10.2) 07/25/24 13:07
Total Bilirubin 2.0 mg/dl (0.2-1.3) H 07/25/24 13:07
AST 55 U/L (17-59) 11/04/24 13:07
ALT 13 U/L (0-50) 07/25/24 13:07
Alkaline Phosphatase 102 U/L (38-126) 07/25/24 13:07
Diagnostic Image Results:
Abd US 05/07/22
IMPRESSION: Patency of the main, right, and left portal veins, with normal direction of flow. Increased pulsatility of the left portal vein, which can be seen in association with cirrhosis.
Hepatic artery is patent with low resistance waveform. Elevated velocity of the hepatic artery, which is commonly seen in association with hepatic disease, including cirrhosis.
Pulsatile flow within the IVC with elevation of peak velocity. The IVC is patent.
Dampening of the spectral waveform of the right hepatic vein, which is likely due to cirrhosis. The hepatic veins are patent.
Mild distention of the gallbladder with no evidence for cholelithiasis. No evidence for pericholecystic edema, and the patient has a negative sonographic Marx's sign.
Hepatomegaly with heterogeneous echotexture, predominantly increased, compatible with diffuse hepatocellular disease. Nodular contour of the liver compatible with cirrhosis. No evidence of a focal hepatic mass lesion.
Splenomegaly.
Trace amount of perihepatic ascites.
Prior GI Procedures:
Last Paracentesis Note 07/21/24: Repeats paracentesis weekly
FINDINGS: 7700 cc of clear yellow ascitic fluid was evacuated. Samples sent for analysis as requested.
IMPRESSION: Successful ultrasound guided diagnostic and therapeutic paracentesis.
EGD 08/27/24 :
Findings:
Grade II varices were found in the lower third of the esophagus with red
geneva sign. They were medium in size. Five bands were successfully placed
with complete eradication, resulting in deflation of varices. There was
no bleeding during the procedure.
Red blood was found in the gastric fundus. This was able to be cleared.
No obvious gastric varices were seen.
The examined duodenum was normal.
Impression: - Grade II esophageal varices. Completely eradicated.
Banded.
- Red blood in the gastric fundus, able to be cleared,
no obvious gastric varices.
- Normal examined duodenum.
- No specimens collected.
Colonoscopy 05/09/22 :
Findings:
The perianal exam findings include small soft likely benign nodule.
The digital rectal exam was normal. Pertinent negatives include normal
prostate (size, shape, and consistency).
A diffuse area of moderately congested mucosa was found in the entire
colon. Biopsies were taken with a cold forceps for histology. Estimated
blood loss was minimal.
The exam was otherwise normal throughout the examined colon.
The terminal ileum appeared normal.
Impression: No blood from the anus to about 10cm into the ileum.
- Small soft likely benign nodule. found on perianal
exam. If you want it removed, see a truck assembler or
general surgeon.
- Congested mucosa in the entire examined colon.
Biopsied.
- The examined portion of the ileum was normal.
Recommendation: - [facility].
- Resume regular diet.
- Await pathology results.
- To visualize the small bowel, perform video capsule
endoscopy at appointment to be scheduled.
- The findings and recommendations were discussed with
the patient.
- My office will call you in 1-2 weeks with the biopsy
results.
- IV iron today and discharge today from a GI
perspective.
- Should start a low dose Nadolol for the small
varices.
- Needs repeat MELD labs in 1 wk and CBC: CBC, CMP, INR
- Follow up in our office within the month
Assessment / Plan
-
Impression: The patient is a 49 year old male who presented to ER with SOB and diazines complaint with his blood loss and his Hgb level was found 6.7 at the admission. Patient reports having dark/tarry stool at least twice daily since Thursday morning
and reports his last bowel movement was at home this morning and had dark color. He denies hematemesis, vomiting but reports feeling burning sensation waxing and weaning on his chest yesterday and he took pepto-bismol to release his pain. He has a
hx of acholic cirrhosis with EGV GII in the past and was hospitalized in the past due GI bleeding.
Plan and Assessment:
#Acute Blood Loss Anemia possibly due to GI Bleeding from EGV
-Hgb level is 6.7
-Try to keep Hgb at the level of 7-8 with RBC transfusion
-Trend serial Hgb Q8 H
-Transfuse 2 units PRBCs was planned
-Started on PPI iv 40 MG and recommend to switch PPI drops
-Recommended to start octreotide drops
-Start ceftriaxone for SBP prophylaxis
-Continue clear liquids for now
-Start NPO starting midnight today
-Planning EGD tomorrow
Alcoholic Cirrhosis with Ascites
-Mild to moderate tenderness, No acidic fluid wave on PE
-Last paracentesis was done on a weekly in routine.
-Diuretics on hold
-Monitor Is&Os and Daily Weights
-
-
Thank you for consultation and allowing me to participate in the patient's care. Please call the seed corn manager production GI physician during the after hours with any questions or concerns.
[2024-07-25] MEDS: KCL ELIXIR 40 MEQ PO (15:19)
[2024-07-25] MEDS: ROCEPHIN 1000 MG IV (15:20)
[2024-07-25 15:35] LABS: Iron < 20 ug/dl (49-181)
--- NOTE | 2024-07-25 15:40 | W.PN.UPDATE ---
Update Note
Progress Note Update
This is an addendum to the H&P written by Lydia Cabrera. Patient seen and examined independently with PA.
49-year-old male history of alcoholic cirrhosis, undergoes weekly paracentesis, esophageal varices status post banding 2 years ago, here for symptomatic anemia with shortness of breath and black stools for the past week. He did drink alcohol last
week.
Labs show hemoglobin 6.7 from 9. 2 units blood transfusion, n.p.o., IV Protonix 40 twice daily, octreotide drip, ceftriaxone. GI consulted. Check iron studies. IR consulted for paracentesis. Hold spironolactone and Lasix. Potassium repletion.
[2024-07-25 15:41] LABS: Total Iron Binding Capacity 320 ug/dl (261-462)
[2024-07-25] MEDS: SANDOSTATIN 50 MCG IV (15:57)
[2024-07-25] MEDS: FLUSH (NSS) 1 FLUSH IV ×2 (16:01→16:05)
[2024-07-25] MEDS: SANDOSTATIN 500.6 MCG IV (16:02)
[2024-07-25 16:48] LABS: Vitamin B12 696 pg/ml (239-931)
[2024-07-25 17:12] LABS: Magnesium 1.9 mg/dl (1.6-2.3)
--- NOTE | 2024-07-25 17:22 | PTCARENOTE ---
1700: Patient arrived to IMU. Patient stood and pivoted to bed from stretcher. Patient AOx3. Patient on RA with SpO2 greater than 92%. NSR on tele. Abdomen round and distended. IVF and blood running per order. Call caldwell within reach and bed in
lowest position.
[2024-07-25] MEDS: NSS (PRESERVATIVE FREE) 10 ML IV (19:51)
[2024-07-25] MEDS: NICODERM TRANSDERMAL 7 MG TRANSDERM (21:10)
[2024-07-25] MEDS: MAGNESIUM OXIDE 500 MG PO (21:37)
[2024-07-26] VITALS (19 sets, daily range): BP systolic 103–133; BP diastolic 58–84; PULSE 64–81; BMI 27.1
[2024-07-26 01:56] LABS: Hematocrit 24.4 % (39.0-52.0); Hemoglobin 7.7 g/dL (13.0-18.0)
[2024-07-26] MEDS: SANDOSTATIN 500.6 MCG IV ×2 (04:05→15:40)
[2024-07-26 04:34] LABS: Hematocrit 24.2 % (39.0-52.0); Hemoglobin 7.4 g/dL (13.0-18.0); Mean Corp Hgb Conc. 30.6 g/dL (33.0-37.0); Mean Corpuscular Volume 65.4 fL (80.0-94.0); Platelet Count 179 10^3/uL (130-400); Red Cell Dist. Width 23.4 % (11.5-14.5); White Blood Cell Count 6.9 10^3/uL (4.8-10.8)
[2024-07-26 04:47] LABS: ALT (SGPT) 12 U/L (0-50); AST (SGOT) 81 U/L (17-59); Albumin 2.8 g/dl (3.5-5.0); Alkaline Phosphatase 91 U/L (38-126); Blood Urea Nitrogen 17 mg/dl (9-20); Carbon Dioxide 25 mmol/L (22-30); Chloride 98 mmol/L (98-107); Estimated Creatinine Clearance > 125 ml/min; Glucose 99 mg/dl (70-99); Potassium 4.3 mmol/L (3.5-5.1); Sodium 131 mmol/L (135-145); Total Bilirubin 3.3 mg/dl (0.2-1.3); Total Protein 6.3 g/dl (6.3-8.2); eGFR > 60.00
[2024-07-26] MEDS: SUBUTEX 4 MG SL (08:38)
[2024-07-26] MEDS: NICODERM TRANSDERMAL 7 MG TRANSDERM (08:46)
[2024-07-26] MEDS: PROTONIX IV 40 MG IV ×2 (08:47→20:01)
[2024-07-26] MEDS: NSS (PRESERVATIVE FREE) 10 ML IV ×2 (08:47→20:01)
--- NOTE | 2024-07-26 12:04 | W.PN.HOSP.TC ---
Today's Communication/Plan
-
s/p EGD
PPI/Octreotride
IV rocephin
IRAD for para in am
trend h/h
Assessment / Plan
Assessment / Plan
Acute Blood Loss Anemia secondary to upper GI Bleed
-Low iron/ferritin-start IV Iron
-Transfused 2 units PRBCs. Hgb at 7.4. Await repeat H/H
-Trend serial Hgb
Upper GI bleed secondary to variceal bleeding
-Continue Protonix 40mg IV BID
-Continue Octreotide drip for 72h
-Continue Ceftriaxone for 7 days
-EGD with Large grade II EV with red geneva signs, s/p multiple bands
-Clears liquids diet.
-trend h/h closely
Decompensate Alcoholic Cirrhosis with Ascites
-Diuretics on hold-restart post paracentesis if BP stable
-Monitor Is&Os and Daily Weights
-Yet to establish care with Dr. Miller for transplant eval
-IRAD c/s in am for therapeutic paracentesis if H/H and hemodynamically stable.
Anxiety/Depression
-Hold Lexapro while NPO
Hx Drug Abuse
-Patient has been clean for over 15 years
-Continue Suboxone
DVT proph: SCDs
Code Status: Full Code
d/w with GI
Anticipated Discharge: > 48 hours
Subjective/Interval History
-
Date of Service: July 26, 2024
states of abd distention
no abd pain
Objective Data
-
Labs:
Laboratory Results
07/26/24 07/26/24
01:45 04:07
WBC 6.9
Hgb 7.7 L 7.4 L
Hct 24.4 L 24.2 L
Plt Count 179
Sodium 131 L
Potassium 4.3 D
Chloride 98
Carbon Dioxide 25
BUN 17
Creatinine 0.8
Glucose 99
Calcium 8.0 L
Total Bilirubin 3.3 H D
AST 81 H
ALT 12
Alkaline Phosphatase 91
Vital Signs:
Vital Signs
Temp Pulse Resp BP Pulse Ox
98.4 F 61 15 103/69 95
07/26/24 07:25 07/26/24 07:00 07/26/24 07:00 07/26/24 04:00 07/26/24 09:35
I&O
07/25/24 07/26/24 07/27/24
06:59 06:59 06:59
Intake Total 990 / 990
Output Total 670 / 670 400 / 400
Balance 320 / 320 -400 / -400
Data Reviewed
-
Total Time Spent with Patient (in minutes): 52
[2024-07-26] MEDS: ZOFRAN 4 MG IV (12:28)
[2024-07-26] MEDS: TYLENOL 650 MG PO (13:18)
[2024-07-26] MEDS: FERRLECIT 110 MG IV (13:18)
[2024-07-26] MEDS: PEPCID 20 MG IV (13:21)
[2024-07-26] MEDS: NSS (PRESERVATIVE FREE) 8 ML IV (13:24)
[2024-07-26] MEDS: ROCEPHIN 1000 MG IV (13:30)
[2024-07-26] MEDS: STERILE WATER FOR INJECTION 10 ML IV (13:30)
--- NOTE | 2024-07-26 13:38 | PTCARENOTE ---
Patient arrived back from GI suite s/p egd. Patient complaining of throat pain. Vital signs stable. Clear liquids.
[2024-07-26 13:45] LABS: Hematocrit 27.6 % (39.0-52.0); Hemoglobin 8.6 g/dL (13.0-18.0)
--- NOTE | 2024-07-26 15:21 | PN.CDI ---
CDI
- -
CDI:
Physician Documentation Request
Admit Date: 07/25/24 15:12
Dear Doctor Pepe,
Patient admitted with GI bleed.
Na levels documented below:
Laboratory Tests
07/25/24 07/26/24
13:07 04:07
Sodium 131 L 131 L
Based on the above, please clarify in the progress notes, the appropriate diagnosis, if significant, that supports the above abnormalities and additional evaluation, monitoring and/or treatment rendered:
Hyponatremia
Insignificant abnormal lab finding
Other
Use of terms such as suspected, likely, concern for, or probable (associated with a specific diagnosis that is being evaluated, monitored, or treated as if it exists) are acceptable and can be coded in the inpatient setting, when documented at the
time of discharge.
Thank you,
Malaika CARRILLON,RN,CCDS
CDI Specialist
Available via tiger text
Please use your independent medical judgment in providing your response.
--- NOTE | 2024-07-26 17:07 | CM ---
Patient with Dx GI bleed. Room air. Receiving IV Abx, IV Fe Na Gluconate, IV Octreotide, IV Protonix. EGD today. Clear liquids. Plan therapeutic paracentesis tomorrow. Per nursing; ambulatory in room.
Met with patient who resides in a one story in law unit attached to his Aunt Sheron's 1 story house.
The patient has been independent in ADLs and ambulation.
The patient has no DME or prior VN.
Has new PCP - can't remember name
Pharmacy - [facility], [facility]
The patient has no children.
Noting prior referral to [facility]: Patient says he does not have any issues with Etoh use and last drink of hard lemonade was 3 weeks ago at a football game.
No CM d/c needs identified.
Plan home.
[2024-07-26] MEDS: VITAMIN B1 100 MG PO (20:02)
[2024-07-27] VITALS (16 sets, daily range): BP systolic 63–121; BP diastolic 54–86; PULSE 68–77; BMI 26.9
[2024-07-27] MEDS: SANDOSTATIN 500.6 MCG IV ×2 (03:46→14:47)
--- NOTE | 2024-07-27 05:06 | PTCARENOTE ---
Patient able to sleep overnight. Reports some esophageal irritation but denies any nausea or vomiting. Octreotide gtt continues per NOV. Voiding via urinal. Able to turn self while in bed. NSR/SB on tele. Pt asking about a paracentesis since he gets
one every outpatient.
call caldwell and tray table within reach. Pt calls appropriately.
[2024-07-27 05:19] LABS: % Eosinophils 2.5 % (0-6); % Immature Granulocytes 0.6 % (0-0.5); % Lymphocytes 16.6 % (20.5-51.1); % Monocytes 13.6 % (1.7-9.3); % Neutrophils 65.7 % (42.2-75.2); Absolute Basophils 0.1 10^3/uL (0-0.2); Absolute Eosinophils 0.2 10^3/uL (0-0.7); Absolute Lymphocytes 1.1 10^3/uL (1.2-3.4); Absolute Monocytes 0.9 10^3/uL (0.1-0.6); Absolute Neutrophils 4.1 10^3/uL (1.4-6.5); Hemoglobin 7.9 g/dL (13.0-18.0); Mean Corp Hgb Conc. 30.4 g/dL (33.0-37.0); Mean Corpuscular Hgb 19.8 pg (27.0-31.0); Nucleated Red Blood Cells % 0 % (-); Platelet Count 192 10^3/uL (130-400); Red Cell Dist. Width 23.3 % (11.5-14.5); White Blood Cell Count 6.3 10^3/uL (4.8-10.8)
[2024-07-27 05:23] LABS: INR 1.45; PT 17.5 Sec (11.4-14.6)
[2024-07-27 05:43] LABS: ALT (SGPT) 19 U/L (0-50); AST (SGOT) 148 U/L (17-59); Albumin 2.9 g/dl (3.5-5.0); Alkaline Phosphatase 96 U/L (38-126); Blood Urea Nitrogen 15 mg/dl (9-20); Calcium 8.4 mg/dl (8.4-10.2); Carbon Dioxide 23 mmol/L (22-30); Chloride 101 mmol/L (98-107); Estimated Creatinine Clearance > 125 ml/min; Glucose 110 mg/dl (70-99); Potassium 4.2 mmol/L (3.5-5.1); Sodium 134 mmol/L (135-145); Total Bilirubin 1.9 mg/dl (0.2-1.3); Total Protein 6.5 g/dl (6.3-8.2); eGFR > 60.00
--- NOTE | 2024-07-27 06:47 | W.PN.GI.CBS2 ---
Today's Communication / Plan
-
S/p EGD 07/26 with multiple banding of grade II large EV without signs of recurrent bleeding. Advance to full liquids for today. Trend serial CBC, transfuse for goal Hgb > 7.0. Hold diuretics for additional 24 hrs until completion of IV Octreotide.
No signs of HE given recent GI bleed. Rest of care as outlined below.
Assessment / Plan
-
#Esophageal Variceal Bleed
#Melena #Acute Blood Loss Anemia
#Decompensated Cirrhosis
#Hx of Prior EV (s/p prior banding 06/2022)
#Ascites
Mr Cantu is a 49 y.o male with past medical history significant for decompensated EtOH cirrhosis with decompensations including ascites (s/p prior moreno, on lasix 60 / aldactone 100mg) along with bleeding EV (p/w hematmesis 08/2022 with grade II
EV s/p banding) who presented to the ED with symptomatic anemia and concern for dark black stools over the past week at home. Still intermittently drinking, drank alcohol last weekend during the game. No other NSAIDs. He never had a f/u EGD since
his previous EGD 08/2022. He was set-up for an EGD with Dr. Tovar later on in 08/2024. However, came to ED with progressive fatigue and SOB. No other fevers or chills. Last paracentesis on 07/21 which was (-) for SBP. No other known decompensations
including HE, SBP, or HCC. HD-stable in ED found to have labs with BUN 17 and Fuel Testing Technician 0.7. INR 1.45 and CBC with Hgb 6.7 (previously 9.0 05/2024). Labs corresponding to a MELD 3.0 of 17.
EGD (melena, acute blood loss anemia, hx of EV grade II 08/2022) 07/26/2024: Grade II and large (> 5 mm) esophageal varices with no bleeding and no stigmata of recent bleeding. Red geneva signs were present. Completely eradicated and after a total of 5
bands were deployed on three separate columns. No bleeding during or at the end of the procedure; medium-sized HH, mild PHG, otherwise normal stomach without any GV, normal duodenum without any varices
S/p 2 upRBCs for Hgb 6.7 -> 7.4 -> 8.6 -> 7.9 without signs of recurrent GI bleeding
Recommendations:
- May advanced diet to full liquids today, defer from further advancing given recent banding
- Trend daily MELD 3.0 labs- CMP and INR
- Trend serial Hgb with CBC q 12 hrs, transfuse for goal Hgb > 7.0
- IV PPI 40 mg BiD
- Continue IV Octreotide x 72 hrs
- IV Ceftriaxone 1 gm q daily given hx of cirrhosis/ascites, treat for 7-day course
- S/p paracentesis, will order albumin per protocol. F/u peritoneal fluid studies to r/o SBP
- Continue to hold all diuretics and antihypertensives given recent variceal bleed
- No signs of HE, continue to monitor and no indication to start lactulose
- Avoid all opioids/benzos while inpatient given cirrhosis
- Would benefit from NSBB for 2 ppx, however previously unable to tolerate this
- Notify GI if concern for hematemesis or other concern for brisk UGIB overnight
- Rest of care per primary team
GI will continue to follow closely while inpatient.
Subjective
Subjective
Date of Service: July 27, 2024
- EGD (melena, acute blood loss anemia, hx of EV grade II 08/2022) 07/26/2024: Grade II and large (> 5 mm) esophageal varices with no bleeding and no stigmata of recent bleeding. Red geneva signs were present. Completely eradicated and after a total of
5 bands were deployed on three separate columns. No bleeding during or at the end of the procedure; medium-sized HH, mild PHG, otherwise normal stomach without any GV, normal duodenum without any varcies
- Hgb stable 7.4 -> 8.6 -> 7.9
- No acute events overnight
Feeling well this AM without any melena or bloody stools. Does note mild chest discomfort since procedure related to banding. No other chest pain or SOB. Plan for IR-guided paracentesis early this AM.
Objective
Data Reviewed
Laboratory Data:
Laboratory Results
07/27/24 05:00
07/27/24 05:00
Laboratory Results
PT 17.5 Sec (11.4-14.6) H 07/27/24 05:00
INR 1.45 07/27/24 05:00
APTT 33.9 Sec (23.4-35.0) 07/25/24 13:07
Magnesium 1.9 mg/dl (1.6-2.3) 07/25/24 13:07
Total Bilirubin 1.9 mg/dl (0.2-1.3) H D 07/27/24 05:00
AST 148 U/L (17-59) H 07/27/24 05:00
ALT 19 U/L (0-50) 07/27/24 05:00
Alkaline Phosphatase 96 U/L (38-126) 07/27/24 05:00
Vital Signs and I&O:
Vital Signs
Temp Pulse Resp BP Pulse Ox
97.8 F 65 18 109/59 91
07/27/24 03:54 07/27/24 06:15 07/27/24 06:15 07/27/24 06:00 07/27/24 06:15
I&O
07/25/24 07/26/24 07/27/24
06:59 06:59 06:59
Intake Total 990 / 990 1430 / 1430
Output Total 670 / 670 1974 / 1974
Balance 320 / 320 -545 / -545
Physical Exam
Physical Exam
HEENT: Anicteric and Moist mucous membranes
Cardiology: Normal Sinus Rhythm
Pulmonary: Clear
GI: Soft, Non Distended and Non Tender
Extremities: No Edema
Neuro: Non Focal
[2024-07-27] MEDS: VITAMIN B1 100 MG PO ×2 (07:44→20:02)
[2024-07-27] MEDS: SUBUTEX 4 MG SL (07:44)
[2024-07-27] MEDS: NICODERM TRANSDERMAL 7 MG TRANSDERM (07:44)
[2024-07-27] MEDS: PROTONIX IV 40 MG IV ×2 (07:45→20:03)
[2024-07-27] MEDS: NSS (PRESERVATIVE FREE) 10 ML IV ×2 (07:46→20:02)
--- NOTE | 2024-07-27 09:36 | PTCARENOTE ---
Assumed care for patient during the day, received report via RN. Pt normal sinus on tele. 98% on room air. Pt denies any nausea or vomiting. Pt denies abdominal pain or tenderness upon palpation. Octreotide gtt continues per order see NOV. Diet
upgraded to full liquid. Patient is tolerating oral intake. Pt is going for paracentesis today. Called report to JULY RN. Pt rings appropriately. Call caldwell is within reach.
[2024-07-27] MEDS: FLEXBUMIN 100 IV (11:19)
--- NOTE | 2024-07-27 11:21 | W.PN.HOSP.TC ---
Today's Communication/Plan
-
diet per GI
Monitor BP
Restart diuretics once BP stabilized
trend h/h
IV abx/octrotide/ppi
Assessment / Plan
Assessment / Plan
Acute Blood Loss Anemia secondary to upper GI Bleed
-Low iron/ferritin-start IV Iron
-Transfused 2 units PRBCs. Hgb at 7.9.
-Trend serial Hgb
Upper GI bleed secondary to variceal bleeding
-Continue Protonix 40mg IV BID
-Continue Octreotide drip for 72h
-Continue Ceftriaxone for 7 days
-EGD with Large grade II EV with red geneva signs, s/p multiple bands
-full liquids diet. Diet per GI
-trend h/h closely
Decompensate Alcoholic Cirrhosis with Ascites
-Diuretics on hold-restart post paracentesis if BP stable
-Monitor Is&Os and Daily Weights
-Yet to establish care with Dr. Miller for transplant eval
-Na-MELD 15
-IRAD c/s for therapeutic paracentesis -s/p 750cc fluid removal. Neg for SBP per cell count. Fluid culture in lab
Anxiety/Depression
-Cont lexapro
Hx Drug Abuse
-Patient has been clean for over 15 years
-Continue Suboxone
Mild hyponatremia
-improving
DVT proph: SCDs
Code Status: Full Code
Anticipated Discharge: 24 - 48 hours
Subjective/Interval History
-
Date of Service: July 27, 2024
feeling better
seen post paracentesis
Objective Data
-
Labs:
Laboratory Results
07/27/24
05:00
WBC 6.3
Hgb 7.9 L
Hct 26.0 L
Plt Count 192
PT 17.5 H
INR 1.45
Sodium 134 L
Potassium 4.2
Chloride 101
Carbon Dioxide 23
BUN 15
Creatinine 0.7
Glucose 110 H
Calcium 8.4
Total Bilirubin 1.9 H D
AST 148 H
ALT 19
Alkaline Phosphatase 96
Vital Signs:
Vital Signs
Temp Pulse Resp BP Pulse Ox
98.6 F 63 16 121/65 96
07/27/24 10:00 07/27/24 10:00 07/27/24 10:00 07/27/24 10:00 07/27/24 10:00
I&O
07/26/24 07/27/24 07/28/24
06:59 06:59 06:59
Intake Total 990 / 990 1430 / 1430
Output Total 670 / 670 1974 / 1974
Balance 320 / 320 -545 / -545
Physical Exam
-
General: Well Developed, Well Nourished and No Apparent Distress
HEENT: Normocephalic and Atraumatic
Respiratory: Clear to Auscultation; Negative Wheezes or Rhonchi
Cardiac: Regular Rhythm and S1/S2
GI: Soft, Nontender, Normal Bowel Sounds and Distended (improved )
Genito-urinary: Other (scrotal edema improved)
Musculoskeletal: No Clubbing, No Cyanosis and No Edema
Skin: Warm
Neuro: Awake
Psych: Calm
Data Reviewed
-
Total Time Spent with Patient (in minutes): 52
[2024-07-27 11:36] LABS: Body Fluid Mononuclear 83.9 %; Body Fluid Polymorphonuclear 16.1 %; Body Fluid WBC 93 /CUMM
[2024-07-27 11:39] LABS: Body Fluid Second Tech ASW
--- NOTE | 2024-07-27 12:00 | PTCARENOTE ---
Pt returned from paracentesis. Report received by RN. Orders for albumin gtt started. Pt reports slight cramping and discomfort after the paracentesis. Sight assessed, small puncture covered with a band-aid. Bowel sounds present in all four
quadrants. Abdomen is soft, non-tender, and round. Pt rings appropriately and has call caldwell within reach.
[2024-07-27] MEDS: MAGNESIUM OXIDE 500 MG PO (12:03)
[2024-07-27] MEDS: FLEXBUMIN 50 IV (12:49)
[2024-07-27] MEDS: FERRLECIT 110 MG IV (14:48)
[2024-07-27] MEDS: ROCEPHIN 1000 MG IV (14:48)
[2024-07-27] MEDS: STERILE WATER FOR INJECTION 10 ML IV (14:48)
[2024-07-27 18:41] LABS: Hematocrit 27.9 % (39.0-52.0); Hemoglobin 8.3 g/dL (13.0-18.0)
[2024-07-27] MEDS: MAALOX 30 ML PO (20:02)
[2024-07-28] VITALS (14 sets, daily range): BP systolic 91–119; BP diastolic 54–70; PULSE 61–78; BMI 25.0
[2024-07-28] MEDS: SANDOSTATIN 500.6 MCG IV (02:45)
[2024-07-28 03:30] LABS: % Basophils 0.6 % (0-2); % Eosinophils 2.2 % (0-6); % Immature Granulocytes 0.5 % (0-0.5); % Lymphocytes 17.3 % (20.5-51.1); % Monocytes 14.8 % (1.7-9.3); % Neutrophils 64.6 % (42.2-75.2); Absolute Basophils 0.1 10^3/uL (0-0.2); Absolute Eosinophils 0.2 10^3/uL (0-0.7); Absolute Immature Granulocytes 0.1 10^3/uL (0-0.05); Absolute Lymphocytes 1.6 10^3/uL (1.2-3.4); Absolute Monocytes 1.4 10^3/uL (0.1-0.6); Hematocrit 29.9 % (39.0-52.0); Hemoglobin 8.7 g/dL (13.0-18.0); Mean Corp Hgb Conc. 29.1 g/dL (33.0-37.0); Mean Corpuscular Hgb 20.1 pg (27.0-31.0); Mean Corpuscular Volume 69.1 fL (80.0-94.0); Mean Platelet Volume 9.4 fL (7.4-10.4); Nucleated Red Blood Cells % 0 % (-); Platelet Count 183 10^3/uL (130-400); Red Blood Cell Count 4.33 10^6/uL (4.70-6.10); Red Cell Dist. Width 24.2 % (11.5-14.5); White Blood Cell Count 9.3 10^3/uL (4.8-10.8)
[2024-07-28 03:31] LABS: ALT (SGPT) 16 U/L (0-50); AST (SGOT) 94 U/L (17-59); Albumin 2.9 g/dl (3.5-5.0); Alkaline Phosphatase 89 U/L (38-126); Blood Urea Nitrogen 9 mg/dl (9-20); Calcium 8.1 mg/dl (8.4-10.2); Carbon Dioxide 26 mmol/L (22-30); Chloride 100 mmol/L (98-107); Estimated Creatinine Clearance > 125 ml/min; Glucose 100 mg/dl (70-99); Potassium 4.2 mmol/L (3.5-5.1); Sodium 134 mmol/L (135-145); Total Bilirubin 1.6 mg/dl (0.2-1.3); Total Protein 6.2 g/dl (6.3-8.2); eGFR > 60.00
[2024-07-28 03:43] LABS: INR 1.58; PT 19.3 Sec (11.4-14.6)
--- NOTE | 2024-07-28 05:22 | PTCARENOTE ---
Maalox provided per pt request for esophageal pain/heart burn. NSR/SB on tele. on RA. Voiding via urinal. No BM. Denies N/V. Refused SCDs. Encouraged to reposition self while in bed. RLQ bandaid intact from paracentesis. Octreotide gtt continues per
the NOV. Call caldwell within reach. Pt calls appropriately.
--- NOTE | 2024-07-28 06:17 | W.PN.GI.CBS2 ---
Today's Communication / Plan
-
Continue full liquid diet diet, space out CBC to once daily. Stop IV Octreotide later this afternoon with resumption of diuretics tomorrow if no signs of recurrent bleeding. Continue IV PPI and IV Ceftriaxone. See rest of care as outlined below.
Assessment / Plan
-
#Esophageal Variceal Bleed (s/p banding 07/26/24)
#Melena #Acute Blood Loss Anemia
#Decompensated EtOH Cirrhosis
#Hx of Prior EV (s/p prior banding 06/2022)
#Ascites
Mr Cantu is a 49 y.o male with past medical history significant for decompensated EtOH cirrhosis with decompensations including ascites (s/p prior moreno, on lasix 60 / aldactone 100mg) along with bleeding EV (p/w hematmesis 08/2022 with grade II
EV s/p banding) who presented to the ED with symptomatic anemia and concern for dark black stools over the past week at home. Still intermittently drinking, drank alcohol last weekend during the game. No other NSAIDs. He never had a f/u EGD since
his previous EGD 08/2022. He was set-up for an EGD with Dr. Tovar later on in 08/2024. However, came to ED with progressive fatigue and SOB. No other fevers or chills. Last paracentesis on 07/21 which was (-) for SBP. No other known decompensations
including HE, SBP, or HCC. HD-stable in ED found to have labs with BUN 17 and Bridge Gang Worker 0.7. INR 1.45 and CBC with Hgb 6.7 (previously 9.0 05/2024). Labs corresponding to a MELD 3.0 of 17.
EGD (melena, acute blood loss anemia, hx of EV grade II 08/2022) 07/26/2024: Grade II and large (> 5 mm) esophageal varices with no bleeding and no stigmata of recent bleeding. Red geneva signs were present. Completely eradicated and after a total of 5
bands were deployed on three separate columns. No bleeding during or at the end of the procedure; medium-sized HH, mild PHG, otherwise normal stomach without any GV, normal duodenum without any varices
S/p 2 upRBCs for Hgb 6.7 -> 7.4 -> 8.6 -> 7.9 -> 8.3 -> 8.7 without signs of recurrent GI bleeding or other new decompensations (ie HE, HRS, etc).
Recommendations:
- Continue full liquid diet only for today, defer from advancing
- Daily MELD 3.0 labs- CMP and INR
- Trend CBC q daily, transfuse for goal Hgb > 7.0
- IV PPI 40 mg BiD, would do 2 week course of oral Pantoprazole 40 mg BiD for post-banding ulcer ppx at discharge
- Continue IV Octreotide x 72 hrs, will complete 72 hrs later this afternoon and can then discontinue
- IV Ceftriaxone 1 gm q daily given hx of cirrhosis/ascites, treat for 7-day course and convert to oral abx near discharge
- S/p IR guided therapeutic paracentesis (-) 750 cc's, (-) for SBP
- Continue to hold all diuretics and antihypertensives given recent variceal bleed. May resume oral diuretics tomorrow after completion of IV Octreotide
- No signs of HE, continue to monitor and no indication to start lactulose
- Avoid all opioids/benzos while inpatient given cirrhosis
- Would benefit from NSBB for 2 ppx, however previously unable to tolerate this
- Notify GI if concern for hematemesis or other concern for brisk UGIB overnight
- Has a repeat EGD coordinated in about [address] Tovar for repeat EGD w/ EVL in August
- Rest of care per primary team
GI will continue to follow closely while inpatient. 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 Tovar).
Subjective
Subjective
Date of Service: July 28, 2024
- Hgb stable 7.9 -> 8.3 -> 8.7
- Otherwise, no acute events overnight
Feeling well, resting comfortably this AM. Still denies any further melena or bloody stools since EGD. Some persistent chest discomfort but much improvement today. No nausea or vomiting. Unable to tolerate fulls yesterday given his pain. No other
SOB or palpitations.
Objective
Data Reviewed
Laboratory Data:
Laboratory Results
07/28/24 03:06
07/28/24 03:06
Laboratory Results
PT 19.3 Sec (11.4-14.6) H 07/28/24 03:06
INR 1.58 07/28/24 03:06
APTT 33.9 Sec (23.4-35.0) 07/25/24 13:07
Magnesium 1.9 mg/dl (1.6-2.3) 07/25/24 13:07
Total Bilirubin 1.6 mg/dl (0.2-1.3) H 07/28/24 03:06
AST 94 U/L (17-59) H 07/28/24 03:06
ALT 16 U/L (0-50) 07/28/24 03:06
Alkaline Phosphatase 89 U/L (38-126) 07/28/24 03:06
Vital Signs and I&O:
Vital Signs
Temp Pulse Resp BP Pulse Ox
98.2 F 62 15 102/56 89
07/28/24 02:47 07/28/24 06:00 07/28/24 06:00 07/28/24 06:00 07/28/24 06:00
I&O
07/26/24 07/27/24 07/28/24
06:59 06:59 06:59
Intake Total 990 / 990 1430 / 1430 1361 / 1361
Output Total 670 / 670 1974 / 1974 1600 / 1600
Balance 320 / 320 -545 / -545 -239 / -239
Physical Exam
Physical Exam
HEENT: Anicteric and Moist mucous membranes
Cardiology: Normal Sinus Rhythm
Pulmonary: Clear
GI: Soft, Non Distended and Non Tender
Extremities: No Edema
Neuro: Non Focal and Other (AAOx3; no asterixis)
[2024-07-28 06:19] LABS: Normal RBC Morphology No
[2024-07-28 06:20] LABS: Anisocytosis 2+; Hypochromasia 2+; Microcytosis 2+
[2024-07-28 06:21] LABS: Ovalocytes 1+; Poikilocytosis 1+; Target Cells 2+
[2024-07-28 06:22] LABS: Acanthocytes Occasional; Polychromasia Occasional; Tear Drop Red Blood Cells Occasional
[2024-07-28 06:23] LABS: Schistocytes Occasional
[2024-07-28] MEDS: LEXAPRO 20 MG PO (07:48)
[2024-07-28] MEDS: VITAMIN B1 100 MG PO ×2 (07:48→20:58)
[2024-07-28] MEDS: NICODERM TRANSDERMAL 7 MG TRANSDERM (07:48)
[2024-07-28] MEDS: NSS (PRESERVATIVE FREE) 10 ML IV ×2 (07:49→20:58)
[2024-07-28] MEDS: PROTONIX IV 40 MG IV ×2 (07:49→20:58)
[2024-07-28] MEDS: SUBUTEX 4 MG SL (09:11)
--- NOTE | 2024-07-28 12:42 | W.PN.HOSP.TC ---
Today's Communication/Plan
-
Trend h/h daily
Monitor BP
Fulls
Assessment / Plan
Assessment / Plan
Acute Blood Loss Anemia secondary to upper GI Bleed
-Low iron/ferritin-start IV Iron while here.
-Transfused 2 units PRBCs. Hgb at 8.7
-Trend serial Hgb
Upper GI bleed secondary to variceal bleeding
-Continue Protonix 40mg IV BID
-Continue Octreotide drip for 72h-should be completed by afternoon
-Continue Ceftriaxone for 7 days
-EGD with Large grade II EV with red geneva signs, s/p multiple bands
-full liquids diet. Diet per GI
-trend h/h closely
Decompensate Alcoholic Cirrhosis with Ascites
-Diuretics on hold-restart post paracentesis if BP stable in am
-Monitor Is&Os and Daily Weights
-Yet to establish care with Dr. Miller for transplant eval
-IRAD c/s for therapeutic paracentesis -s/p 750cc fluid removal. Neg for SBP per cell count. Fluid culture in lab -neg so far.
Anxiety/Depression
-Cont lexapro
Hx Drug Abuse
-Patient has been clean for over 15 years
-Continue Suboxone
Mild hyponatremia
-improving
DVT proph: SCDs
Code Status: Full Code
d/w with GI
Anticipated Discharge: Within 24 hours
Subjective/Interval History
-
Date of Service: July 28, 2024
Denies any abdominal pain
No further episode of hematemesis on melanotic stools
Objective Data
-
Labs:
Laboratory Results
07/28/24
03:06
WBC 9.3
Hgb 8.7 L
Hct 29.9 L
Plt Count 183
PT 19.3 H
INR 1.58
Sodium 134 L
Potassium 4.2
Chloride 100
Carbon Dioxide 26
BUN 9
Creatinine 0.8
Glucose 100 H
Calcium 8.1 L
Total Bilirubin 1.6 H
AST 94 H
ALT 16
Alkaline Phosphatase 89
Vital Signs:
Vital Signs
Temp Pulse Resp BP Pulse Ox
97.9 F 51 12 100/61 95
07/28/24 11:00 07/28/24 12:15 07/28/24 12:15 07/28/24 12:00 07/28/24 12:15
I&O
07/27/24 07/28/24 07/29/24
06:59 06:59 06:59
Intake Total 1430 / 1430 1361 / 1361
Output Total 1974 / 1974 1600 / 1600 475 / 475
Balance -545 / -545 -239 / -239 -475 / -475
Physical Exam
-
General: Well Developed, Well Nourished and No Apparent Distress
HEENT: Normocephalic and Atraumatic
Respiratory: Clear to Auscultation; Negative Wheezes or Rhonchi
Cardiac: Regular Rhythm and S1/S2
GI: Soft, Nontender, Nondistended and Normal Bowel Sounds
Musculoskeletal: No Clubbing, No Cyanosis and No Edema
Skin: Warm
Neuro: Awake
Psych: Calm
--- NOTE | 2024-07-28 13:22 | PTCARENOTE ---
Assumed care for patient, received report via RN. NSR/SB on tele. 95% on room air. Pt denies any abdominal discomfort today. Voiding in the urinal. Wearing SCD's requests a break from them this AM. Educated and encouraged to reposition self in the
bed. Oral care done and bathed self in bathing wipes. Face washed. RLQ bandaid intact from paracentesis. Octreotride gtt continues see NOV. Pt tolerating full liquid diet wants to advance to more solid foods. Pt rings appropriately. Call caldwell is
within reach.
[2024-07-28] MEDS: FERRLECIT 110 MG IV (13:54)
[2024-07-28] MEDS: ROCEPHIN 1000 MG IV (13:55)
[2024-07-28] MEDS: STERILE WATER FOR INJECTION 10 ML IV (13:55)
[2024-07-29] VITALS (7 sets, daily range): BP systolic 98–116; BP diastolic 61–74; BMI 26.0
--- NOTE | 2024-07-29 05:31 | PTCARENOTE ---
Addendum entered by Quan Lema RN 07/29/24 06:18:
Patient reported small loose dark brown BM in BR this morning.
Original Note:
No acute changes overnight. Denies any pain. Ambulated to BR, stand-by assist. Tele showing NSR/SB. On room air. Voiding via urinal. Denies N/V. No BM, pt states he feels one coming soon. Refused SCDs. Call caldwell within reach.
[2024-07-29 05:46] LABS: % Basophils 1.1 % (0-2); % Eosinophils 2.3 % (0-6); % Immature Granulocytes 0.7 % (0-0.5); % Lymphocytes 21.3 % (20.5-51.1); % Monocytes 13.1 % (1.7-9.3); % Neutrophils 61.5 % (42.2-75.2); Absolute Basophils 0.1 10^3/uL (0-0.2); Absolute Eosinophils 0.2 10^3/uL (0-0.7); Absolute Immature Granulocytes 0.1 10^3/uL (0-0.05); Absolute Lymphocytes 1.9 10^3/uL (1.2-3.4); Absolute Monocytes 1.2 10^3/uL (0.1-0.6); Absolute Neutrophils 5.4 10^3/uL (1.4-6.5); Hematocrit 31.3 % (39.0-52.0); Mean Corp Hgb Conc. 28.8 g/dL (33.0-37.0); Mean Corpuscular Hgb 20.4 pg (27.0-31.0); Mean Platelet Volume 9.4 fL (7.4-10.4); Nucleated Red Blood Cells % 0 % (-); Platelet Count 203 10^3/uL (130-400); Red Blood Cell Count 4.41 10^6/uL (4.70-6.10); Red Cell Dist. Width 25.2 % (11.5-14.5); White Blood Cell Count 8.8 10^3/uL (4.8-10.8)
[2024-07-29 05:48] LABS: PT 18.7 Sec (11.4-14.6)
[2024-07-29 06:00] LABS: ALT (SGPT) 15 U/L (0-50); AST (SGOT) 57 U/L (17-59); Albumin 2.9 g/dl (3.5-5.0); Alkaline Phosphatase 92 U/L (38-126); Blood Urea Nitrogen 9 mg/dl (9-20); Calcium 8.4 mg/dl (8.4-10.2); Carbon Dioxide 28 mmol/L (22-30); Chloride 100 mmol/L (98-107); Estimated Creatinine Clearance > 125 ml/min; Glucose 103 mg/dl (70-99); Potassium 5.1 mmol/L (3.5-5.1); Sodium 136 mmol/L (135-145); Total Bilirubin 1.2 mg/dl (0.2-1.3); Total Protein 6.4 g/dl (6.3-8.2); eGFR > 60.00
[2024-07-29] MEDS: NSS (PRESERVATIVE FREE) 10 ML IV (07:59)
[2024-07-29] MEDS: PROTONIX IV 40 MG IV (07:59)
[2024-07-29] MEDS: VITAMIN B1 100 MG PO (08:00)
[2024-07-29] MEDS: LASIX 20 MG PO (08:00)
[2024-07-29] MEDS: NICODERM TRANSDERMAL 7 MG TRANSDERM (08:00)
[2024-07-29] MEDS: LEXAPRO 20 MG PO (08:00)
[2024-07-29] MEDS: SUBUTEX 4 MG SL (08:00)
[2024-07-29] MEDS: ALDACTONE 50 MG PO (08:01)
--- NOTE | 2024-07-29 11:37 | W.PN.GI.CBS2 ---
Today's Communication / Plan
-
Hgb stable. Advance diet. Resume diuretics at lower dose. Repeat EGD scheduled for 08/23. GI will sign off, please call with questions.
Assessment / Plan
-
#Esophageal Variceal Bleed (s/p banding 07/26/24)
#Melena #Acute Blood Loss Anemia
#Decompensated EtOH Cirrhosis
#Hx of Prior EV (s/p prior banding 06/2022)
#Ascites
Mr Cantu is a 49 y.o male with past medical history significant for decompensated EtOH cirrhosis with decompensations including ascites (s/p prior moreno, on lasix 60 / aldactone 100mg) along with bleeding EV (p/w hematmesis 08/2022 with grade II
EV s/p banding) who presented to the ED with symptomatic anemia and concern for dark black stools over the past week at home. Still intermittently drinking, drank alcohol last weekend during the game. No other NSAIDs. He never had a f/u EGD since
his previous EGD 08/2022. He was set-up for an EGD with Dr. Tovar later on in 08/2024. However, came to ED with progressive fatigue and SOB. No other fevers or chills. Last paracentesis on 07/21 which was (-) for SBP. No other known decompensations
including HE, SBP, or HCC. HD-stable in ED found to have labs with BUN 17 and Linux Administrator 0.7. INR 1.45 and CBC with Hgb 6.7 (previously 9.0 05/2024). Labs corresponding to a MELD 3.0 of 17.
EGD (melena, acute blood loss anemia, hx of EV grade II 08/2022) 07/26/2024: Grade II and large (> 5 mm) esophageal varices with no bleeding and no stigmata of recent bleeding. Red geneva signs were present. Completely eradicated and after a total of 5
bands were deployed on three separate columns. No bleeding during or at the end of the procedure; medium-sized HH, mild PHG, otherwise normal stomach without any GV, normal duodenum without any varices
S/p 2 upRBCs for Hgb 6.7 -> 7.4 -> 8.6 -> 7.9 -> 8.3 -> 8.7 --> 9.0 without signs of recurrent GI bleeding or other new decompensations (ie HE, HRS, etc).
Recommendations:
- Diet advanced this morning; no longer complaining of pain
- Daily MELD 3.0 labs- CMP and INR
- Trend CBC q daily, transfuse for goal Hgb > 7.0
- s/p IV PPI 40 mg BiD, transitioned to PO PPI -->would do 2 week course of oral Pantoprazole 40 mg BiD for post-banding ulcer ppx at discharge
- s/p octreotide x72 hours, completed yesterday
- IV Ceftriaxone 1 gm q daily given hx of cirrhosis/ascites, treat for 7-day course and convert to oral abx near discharge
- S/p IR guided therapeutic paracentesis (-) 750 cc's, (-) for SBP
-patient's blood pressures were on the softer side, 90/60s, will resume diuretics at lower dose, which I discussed with him-- Spironlactone 50mg/lasix 20mg. He will uptitrate, as tolerated, by Dr. Tovar as an outpatient
- Avoid all opioids/benzos while inpatient given cirrhosis
- Would benefit from NSBB for 2 ppx, however previously unable to tolerate this
-Repeat EGD to assess for variceal eradication scheduled on 08/[address] Tovar
GI will sign off, please call with questions.
Subjective
Subjective
Date of Service: July 29, 2024
Patient seen in follow-up, offers no complaints. Hemoglobin stable at 9.0 today. No bleeding overnight.
Objective
Data Reviewed
Laboratory Data:
Laboratory Results
07/29/24 05:20
07/29/24 05:20
Laboratory Results
PT 18.7 Sec (11.4-14.6) H 07/29/24 05:20
INR 1.50 07/29/24 05:20
APTT 33.9 Sec (23.4-35.0) 07/25/24 13:07
Magnesium 1.9 mg/dl (1.6-2.3) 07/25/24 13:07
Total Bilirubin 1.2 mg/dl (0.2-1.3) 07/29/24 05:20
AST 57 U/L (17-59) 07/29/24 05:20
ALT 15 U/L (0-50) 07/29/24 05:20
Alkaline Phosphatase 92 U/L (38-126) 07/29/24 05:20
Vital Signs and I&O:
Vital Signs
Temp Pulse Resp BP Pulse Ox
97.7 F 100 23 113/73 94
07/29/24 07:05 07/29/24 09:15 07/29/24 09:15 07/29/24 08:01 07/29/24 08:45
I&O
07/28/24 07/29/24 07/30/24
06:59 06:59 06:59
Intake Total 1361 / 1361 1790 / 1790
Output Total 1600 / 1600 925 / 925
Balance -239 / -239 865 / 865
Physical Exam
Physical Exam
HEENT: Anicteric and Moist mucous membranes
Cardiology: Normal Sinus Rhythm
Pulmonary: Clear
GI: Soft, Non Distended and Non Tender
Extremities: No Edema
Neuro: Non Focal and Other (AAOx3; no asterixis)
--- NOTE | 2024-07-29 12:01 | W.PN.HOSP.TC ---
Today's Communication/Plan
-
po ppi bid x 2 weeks
po abx
DC
reduce diuretics
Assessment / Plan
Assessment / Plan
Acute Blood Loss Anemia secondary to upper GI Bleed
-Low iron/ferritin-start IV Iron while here.
-Transfused 2 units PRBCs. Hgb at 9
-Trend serial Hgb
Upper GI bleed secondary to variceal bleeding
-Continue Protonix 40mg BId for 2 weeks then daily.
-Continue Octreotide drip for 72h-should be completed by afternoon
-Continue Ceftriaxone for 7 days -give dose prior to dc. day 4/. Will switch to po cefdinir on discharge.
-EGD with Large grade II EV with red geneva signs, s/p multiple bands
-trend h/h closely
Decompensate Alcoholic Cirrhosis with Ascites
-Diuretics restarted at lower dose lasix 20mg and Aldactone 50mg daily (PLASTICS TECHNICIAN Lasix was 60mg and Aldactone was 150mg)
-Monitor Is&Os and Daily Weights
-Yet to establish care with Dr. Miller for transplant eval
-IRAD c/s for therapeutic paracentesis -s/p 750cc fluid removal. Neg for SBP per cell count. Fluid culture in lab -neg so far.
Anxiety/Depression
-Cont lexapro
Hx Drug Abuse
-Patient has been clean for over 15 years
-Continue Suboxone
Mild hyponatremia
-improved
DVT proph: SCDs
Code Status: Full Code
More than 30 minutes spent in discharge including
Final examination of the patient
Summarizing hospital stay
Instructions for continuing care to all relevant caregivers
Preparation of discharge records, prescriptions, and referral forms
Total time spent (in minutes): 51
Anticipated Discharge: Today
Subjective/Interval History
-
Date of Service: July 29, 2024
feeling better
tolerating diet
no further hematemesis or nausea or vomiting
Objective Data
-
Labs:
Laboratory Results
07/29/24
05:20
WBC 8.8
Hgb 9.0 L
Hct 31.3 L
Plt Count 203
PT 18.7 H
INR 1.50
Sodium 136
Potassium 5.1
Chloride 100
Carbon Dioxide 28
BUN 9
Creatinine 0.8
Glucose 103 H
Calcium 8.4
Total Bilirubin 1.2
AST 57
ALT 15
Alkaline Phosphatase 92
Vital Signs:
Vital Signs
Temp Pulse Resp BP Pulse Ox
98.1 F 100 23 113/73 94
07/29/24 11:05 07/29/24 09:15 07/29/24 09:15 07/29/24 08:01 07/29/24 08:45
I&O
07/28/24 07/29/24 07/30/24
06:59 06:59 06:59
Intake Total 1361 / 1361 1790 / 1790
Output Total 1600 / 1600 925 / 925
Balance -239 / -239 865 / 865
Physical Exam
-
General: Well Developed, Well Nourished and No Apparent Distress
HEENT: Normocephalic and Atraumatic
Respiratory: Clear to Auscultation; Negative Wheezes or Rhonchi
Cardiac: Regular Rhythm and S1/S2
GI: Soft, Nontender, Normal Bowel Sounds and Distended (mild )
Musculoskeletal: No Clubbing, No Cyanosis and No Edema
Skin: Warm
Neuro: Awake
Psych: Calm
--- NOTE | 2024-07-29 12:10 | W.DCSUMMARY ---
Discharge Summary
Discharge Data
Date of Admission: 07/25/24
Date of Discharge: 07/29/24
-
Pending Results: No
Hospital Course
49 yo male past medical history of alcoholic cirrhosis, anxiety, depression, history of drug abuse was presented with hematemesis. Patient was kept n.p.o. and was started on Protonix, octreotide and ceftriaxone. Patient underwent endoscopy which
showed large grade 2 esophageal varices status post banding. Patient was kept on a clear liquid diet. Patient received 3 days of octreotide drip. Patient was taken off Protonix drip and was started on PPI twice daily which will be continued on
discharge. Patient was transition from IV ceftriaxone to cefdinir on discharge. Patient hemoglobin was trended. Patient required 2 units of PRBC. Patient hemoglobin stabilized. IRAD c/s for therapeutic paracentesis -s/p 750cc fluid removal.
Neg for SBP per cell count. Fluid culture in lab negative so far. Patient without any further episode of hematemesis. Hemoglobin stabilized. Patient was restarted on diuretics Lasix 20 mg and Aldactone 50 mg daily. Patient blood pressure
remained stable. Patient be discharged home with recommendation to follow-up with his primary Neurologist Dr. Mcdaniel.
Discharge Plan
-
Patient Disposition: Home (Routine Discharge)
Discharge Diagnosis/Procedures: Acute blood loss anemia secondary to GI bleed
Upper GI bleed secondary to variceal bleeding
Mild hyponatremia
Condition: Fair
Diet: 2 Gram Sodium and Restrict fluids to 48 oz
Activity: With assistance and As tolerated
Driving Restrictions: As prior to admission
Activity Restrictions/Additional Instructions:
Take half tablet of Lasix 40 mg tablet which will be 20 mg daily
Take half tablet of spironolactone 100 mg tablet which will be 50 mg daily
Referrals:
Siva Tovar MD [Active] - 08/23/24 (Repeat EGD )
NONE,* [Family Provider] - in less than 1 week
Prescriptions:
New
pantoprazole 40 mg Tablet,Delayed Release (Dr/Ec)
40 mg PO BID Qty: 44 0RF
Rx Instructions:
40mg po bid x 2 weeks then 40mg daily
cefdinir 300 mg capsule
300 mg PO Q12H Qty: 6 0RF
Continued
escitalopram oxalate 20 MG tablet
20 mg PO DAILY
buprenorphine-naloxone 8-2 mg Film
0.5 film SUBLINGUAL DAILY
acetaminophen [Tylenol] 325 mg Tablet
650 mg PO Q6HPRN PRN (Reason: mild pain)
bisacodyl [Dulcolax (bisacodyl)] 10 mg Suppository
10 mg IN DAILYPRN PRN (Reason: constipaiton)
bismuth subsalicylate [Pepto-Bismol] 262 mg/15 mL Suspension
524 mg PO DAILYPRN PRN (Reason: stomach issuses)
thiamine HCl (vitamin B1) 100 mg tablet
100 mg PO BID
Changed
furosemide 20 mg tablet
20 mg PO DAILY Qty: 0 0RF
spironolactone 50 mg Tablet
50 mg PO DAILY Qty: 0 0RF
Discharge Orders:
Discharge Patient (As Directed); Ordered 07/29/24
Ordered By: Jarret Cantu
Discharge Date and Time
Discharge Date/Time: 07/29/24 13:50
Print Language: PALAUAN
[2024-07-29] MEDS: STERILE WATER FOR INJECTION 10 ML IV (12:56)
[2024-07-29] MEDS: ROCEPHIN 1000 MG IV (12:56)
[2024-07-29] MEDS: AFLURIA (36 mos+) 2024-2025 FORMULA 0.5 ML IM (13:25)
--- NOTE | 2024-07-29 14:27 | CM ---
Patient with Dx GI bleed. Room air. Regular diet. Per nursing; A/O, ambulatory by self.
Patient discharged by nurse before able to be seen.
No CM d/c needs identified.
Plan home today.
== END 2024-07-29 13:50 | disposition home or self-care (01) | DRG 432 ==
LOC: IMU 15:12
PROVIDERS: Physician Assistant Medical; Radiology Diagnostic Radiology; ADMITTING PHYSICIAN Hospitalist; ATTENDING PHYSICIAN Hospitalist; CONSULT PHYSICIAN Student in an Organized Health Care Education/Training Program; EMERGENCY PHYSICIAN Emergency Medicine
PROC: 30233N1 Transfusion of Nonautologous Red Blood Cells into Peripheral Vein, Percutaneous Approach (ICD-10-PCS; 2024-07-25)
PROC: 06L38CZ Occlusion of Esophageal Vein with Extraluminal Device, Via Natural or Artificial Opening Endoscopic (ICD-10-PCS; 2024-07-26)
PROC: 0W9G3ZX Drainage of Peritoneal Cavity, Percutaneous Approach, Diagnostic (ICD-10-PCS; 2024-07-27)
DX: K70.31 Alcoholic cirrhosis of liver with ascites (principal); I85.11 Secondary esophageal varices with bleeding; K76.6 Portal hypertension; D62 Acute posthemorrhagic anemia; E87.1 Hypo-osmolality and hyponatremia; F32.A Depression, unspecified; F10.10 Alcohol abuse, uncomplicated; K31.89 Other diseases of stomach and duodenum; K44.9 Diaphragmatic hernia without obstruction or gangrene; K82.8 Other specified diseases of gallbladder; F17.210 Nicotine dependence, cigarettes, uncomplicated; F41.9 Anxiety disorder, unspecified; R16.1 Splenomegaly, not elsewhere classified; Z79.899 Other long term (current) drug therapy
CPT/HCPCS: 49083; 80053; 82607; 82728; 82746; 83540; 83550; 83735; 85014; 85018; 85025; 85027; 85610; 85730; 86850; 86900; 86901; 86920; 87015; 87070; 87205; 89051; 90686; 96374; 99291; G0008; J2916; P9016; P9047

== ENCOUNTER → 2024-08-04 07:19 | Outpatient (REF) | payer OTHER, SELFPAY ==
[2024-08-04 08:12] VITALS: BP 146/80; BP_SYST 71
[2024-08-04 08:56] VITALS: BP 129/77
[2024-08-04 10:07] LABS: Body Fluid WBC 135 /CUMM
[2024-08-04 10:45] LABS: Body Fluid Second Tech CF
== END ==
LOC: RADI 07:19
PROVIDERS: ATTENDING PHYSICIAN Specialist
DX: R18.8 Other ascites (principal)
CPT/HCPCS: 49083; 89051

== ENCOUNTER 2024-08-04 08:45 | Emergency (ER) | payer OTHER, SELFPAY ==
[2024-08-04 08:46] VITALS: BP 127/77
--- NOTE | 2024-08-04 09:09 | ED.GENMED ---
History of Present Illness
General
Chief Complaint: Rectal Bleeding
Source: patient
Exam Limitations: none
Time Seen by Provider: 08/04/24 09:08
Nursing documentation reviewed up to this point in time: agreed with
History of Present Illness
History of Present Illness:
Patient is a 49-year-old male with past medical history of alcoholic cirrhosis anxiety depression history of drug abuse sent by interventional radiology. Patient gets weekly paracentesis and had his paracentesis done today however mentioned that he
was having dark stools since the middle of the day yesterday which continued until last night. He reports stool was a mixture of dark brown/black. Patient was admitted July 25 to July 29 had endoscopy which showed 2 large grade 2 esophageal
varices and had banding. He was on octreotide on Protonix up at the time and was discharged on PPI. Patient did get transfused 2 units of packed red blood cells.
Patient does feel a little weak. He denies any chest pain shortness of breath fever chills he denies any abdominal pain. In addition
In addition patient had approximate 8 L of fluid removed and will need albumin
Past History
Past History
ED Past Medical History: Psychiatric (Anxiety/depression, GI bleed) and Other (History of esophageal varices, liver cirrhosis)
ED Past Surgical History: None
Patient has exhibited threatening behavior?: No
Social History
Tobacco: Smoker
Alcohol: Chronic alcoholic
Drug: Former user
Personal: Other
Living: with family
Employment: Employed
Family History
Family History: Other
Review of Systems
Review of Systems
Allergies reviewed?: Yes
All Other Systems: ROS reviewed and negative except as documented in HPI and ROS
Constitutional: Reports fatigue; Denies fever or chills
EENT: Reports no symptoms
Respiratory: Reports no symptoms
Cardiac: Reports no symptoms
ABD/GI: Reports black stools; Denies nausea
: Reports no symptoms
Musculoskeletal: Reports no symptoms
Skin: Reports no symptoms
Neurological: Reports no symptoms
Psychiatric: Reports no symptoms
Phy Exam
General Physical Exam
General Presentation: no apparent distress
General age: appears older than age
General Skin: pale
General Habitus: normal
General Mental: alert
General Hydration: appears well hydrated
Cardiovascular Exam
Cardiovascular Exam: regular rate/rhythm, no murmur and normal peripheral pulses
Pulmonary Exam
Pulmonary Exam: lungs clear and no respiratory distress
Gastrointestinal Exam
Gastrointestinal Exam: non tender, soft, ascites and other (Patient isbrown stool heme negative )
Neurological Exam
Neurological Exam: alert and oriented x3
Musculoskeletal Exam
Musculoskeletal Exam: full ROM
Skin Exam
Skin Exam: normal color and warm/dry
Psychiatric Exam
Psychiatric Exam: normal mood/affect
Course
Orders/Labs/Results
Orders:
Orders
08/04/24 09:21
Cardiac Monitoring- Treatment ONCE
IV Insert/Care/Rem.- Treatment PRN
08/04/24 09:29
Type+Screen Urgent
Complete Blood Count/With Diff Urgent
Comprehensive Metabolic Panel Urgent
08/04/24 11:00
Albumin Human 25% 50 ml [Flexbumin] 12.5 grams in 50 ml IV ONCE
08/04/24 12:00
Albumin Human 25% 100 ml [Flexbumin] 25 grams in 100 ml IV Q100M
Abnormal Lab Results
08/04/24
09:29
RBC 4.23 L 10^6/uL
(4.70-6.10)
Hgb 8.8 L g/dL
(13.0-18.0)
Hct 29.5 L %
(39.0-52.0)
MCV 69.7 L fL
(80.0-94.0)
MCH 20.8 L pg
(27.0-31.0)
MCHC 29.8 L g/dL
(33.0-37.0)
RDW 25.7 H %
(11.5-14.5)
Absolute Lymphs (auto) 0.9 L 10^3/uL
(1.2-3.4)
Absolute Monos (auto) 0.7 H 10^3/uL
(0.1-0.6)
Immature Gran % 0.6 H %
(0-0.5)
Lymphocytes % 13.0 L %
(20.5-51.1)
Monocytes % 10.2 H %
(1.7-9.3)
Sodium 134 L mmol/L
(135-145)
BUN 8 L mg/dl
(9-20)
AST 77 H U/L
(17-59)
Alkaline Phosphatase 145 H U/L
(38-126)
Albumin 2.9 L g/dl
(3.5-5.0)
08/04/24 09:29
08/04/24 09:29
Vital Signs
Initial and Last Documented VS:
Initial Vital Signs
Temp Pulse Resp BP Pulse Ox
98.2 F 84 16 127/77 100
08/04/24 08:46 08/04/24 08:46 08/04/24 08:46 08/04/24 08:46 08/04/24 08:46
Last Documented Vital Signs
Temp Pulse Resp BP Pulse Ox
98.2 F 73 14 124/69 93
08/04/24 08:46 08/04/24 15:27 08/04/24 15:27 08/04/24 15:27 08/04/24 11:45
Car Salesperson consulted with Physician
Car Salesperson consulted with physician?: Yes
Name of Physician Consulted: NOh
MDM/Problems Addressed
Differential Diagnosis Includes:
Not limited to esophageal varices, anemia, GI bleed
MDM/Problems Addressed:
Patient is a 49-year-old male with cirrhosis presents to the ER for evaluation. Patient was sent from IR. Patient had his paracentesis without problem but mention that he had black/dark stools and was sent to the ER. Patient denies any abdominal
pain nausea vomiting. He is pale. He was recently here for esophageal banding and had transfusion as documented above. Patient's discharge hemoglobin is 9.0 on July 29 and his hemoglobin is 8.8 today which is baseline. Patient's stool was
tested and is brown and heme-negative he has no abdominal pain. He has no acute distress.
From an anemia perspective patient stable for discharge home. Patient does require however albumin status post paracentesis as he had 8 L. 62.5 g of 25% IV albumin was ordered and plan will be to discharge home after. Patient with stable vital
signs nontachycardic afebrile stable electrolytes normal white count in no acute distress.
*Critical Care Note
Total Time (30-74mins, 75-104mins- exclusive of procedures): Not Applicable
ED Attending Note
-
Portions of this chart may have been created with voice recognition software.� Occasional wrong word or��sound alike� substitutions may have occurred due to the inherent limitations of voice recognition software.
Discharge Plan
Departure
Patient Disposition: Home (Routine Discharge)
Date of Disposition: 08/04/24
Time of Disposition: 14:30
Patient with high blood pressure during this ER visit?: No
Condition: Fair
Covid-19: Not Applicable
Discharge Problem:
Anemia
Instructions: Abdominal Paracentesis (DC)
Prescriptions:
No Action
escitalopram oxalate 20 MG tablet
20 mg PO DAILY
buprenorphine-naloxone 8-2 mg Film
0.5 film SUBLINGUAL DAILY
acetaminophen [Tylenol] 325 mg Tablet
650 mg PO DAILYPRN PRN (Reason: mild pain)
thiamine HCl (vitamin B1) 100 mg tablet
100 mg PO BID
furosemide 40 mg Tablet
20 mg PO DAILY
spironolactone 100 mg Tablet
50 mg PO DAILY
pantoprazole 40 mg tablet,delayed release (DR/EC)
20 mg PO DAILY
Referrals:
Cong Michaels, DO [Active] -
UNKNOWN - PT DOES,NOT KNOW [Family Provider] -
Activity Restrictions/Additional Instructions:
As discussed her hemoglobin today was stable at 8.8. You were given albumin after paracentesis was done. Follow-up with GI as scheduled and your family doctor the next several days for reevaluation return if any worsening of symptoms
Interventions
Interventions:
*Risk Screen - Suicide Last Done: 08/04/24 08:46
*General Assessment Last Done: 08/04/24 09:15
*Neglect/Abuse Screening Last Done: 08/04/24 08:46
ED- Fall Risk Assessment Last Done: 08/04/24 09:18
*ED COVID-19 Vaccine History Last Done: 08/04/24 09:28
*Nursing Disposition Last Done: 08/04/24 15:37
EL-Ukqazj-Dohzwqtcek Assessment Last Done: 08/04/24 09:18
ED- Cardiac Assessment Last Done: 08/04/24 09:18
ED- Pulmonary Assessment Last Done: 08/04/24 09:18
Discharge Date and Time
Discharge Date/Time: 08/04/24 15:37
Print Language: [place]LAND[place]
[2024-08-04 09:14] VITALS: BMI 26.8
[2024-08-04 09:19] VITALS: BP 127/79
[2024-08-04 09:45] LABS: % Basophils 0.8 % (0-2); % Eosinophils 1.4 % (0-6); % Immature Granulocytes 0.6 % (0-0.5); % Monocytes 10.2 % (1.7-9.3); Absolute Basophils 0.1 10^3/uL (0-0.2); Absolute Eosinophils 0.1 10^3/uL (0-0.7); Absolute Lymphocytes 0.9 10^3/uL (1.2-3.4); Absolute Monocytes 0.7 10^3/uL (0.1-0.6); Absolute Neutrophils 4.9 10^3/uL (1.4-6.5); Hematocrit 29.5 % (39.0-52.0); Hemoglobin 8.8 g/dL (13.0-18.0); Mean Corp Hgb Conc. 29.8 g/dL (33.0-37.0); Mean Corpuscular Hgb 20.8 pg (27.0-31.0); Mean Corpuscular Volume 69.7 fL (80.0-94.0); Mean Platelet Volume 9.1 fL (7.4-10.4); Nucleated Red Blood Cells % 0 % (-); Platelet Count 175 10^3/uL (130-400); Red Blood Cell Count 4.23 10^6/uL (4.70-6.10); Red Cell Dist. Width 25.7 % (11.5-14.5); White Blood Cell Count 6.6 10^3/uL (4.8-10.8)
[2024-08-04 09:52] LABS: ALT (SGPT) 14 U/L (0-50); AST (SGOT) 77 U/L (17-59); Albumin 2.9 g/dl (3.5-5.0); Alkaline Phosphatase 145 U/L (38-126); Blood Urea Nitrogen 8 mg/dl (9-20); Calcium 8.4 mg/dl (8.4-10.2); Carbon Dioxide 25 mmol/L (22-30); Chloride 101 mmol/L (98-107); Estimated Creatinine Clearance > 125 ml/min; Glucose 93 mg/dl (70-99); Sodium 134 mmol/L (135-145); Total Protein 6.6 g/dl (6.3-8.2); eGFR > 60.00
[2024-08-04 10:00] VITALS: BP 113/63
[2024-08-04] MEDS: FLEXBUMIN 50 IV (11:25)
[2024-08-04 12:00] VITALS: BP 118/72
[2024-08-04] MEDS: FLEXBUMIN 100 IV ×2 (12:19→13:45)
[2024-08-04 15:27] VITALS: BP 124/69
== END 2024-08-04 15:37 | disposition home or self-care (01) ==
LOC: EMR 08:45
PROVIDERS: Nurse Practitioner; EMERGENCY PHYSICIAN Emergency Medicine
DX: D64.9 Anemia, unspecified (principal); K70.30 Alcoholic cirrhosis of liver without ascites; F17.200 Nicotine dependence, unspecified, uncomplicated; I85.10 Secondary esophageal varices without bleeding; Z98.890 Other specified postprocedural states
CPT/HCPCS: 96365; 96376; 99284; 80053; 85025; 86850; 86900; 86901; P9047

== ENCOUNTER → 2024-08-11 07:16 | Outpatient (REF) | payer OTHER, SELFPAY ==
[2024-08-11 07:40] VITALS: BP 153/90; BP_SYST 77
[2024-08-11 08:17] LABS: Body Fluid WBC 133 /CUMM
[2024-08-11 08:32] VITALS: BP 127/78
[2024-08-11 08:37] LABS: Body Fluid Second Tech AMA
== END ==
LOC: RADI 07:16
PROVIDERS: ATTENDING PHYSICIAN Specialist
DX: R18.8 Other ascites (principal)
CPT/HCPCS: 49083; 87015; 87070; 87205; 89051

== ENCOUNTER → 2024-08-17 07:23 | Outpatient (REF) | payer OTHER, SELFPAY ==
[2024-08-17 07:35] VITALS: BP 129/76; BP_SYST 71
[2024-08-17 08:54] VITALS: BP 129/76
[2024-08-17 09:02] LABS: % Basophils 0.7 % (0-2); % Eosinophils 1.3 % (0-6); % Immature Granulocytes 0.9 % (0-0.5); % Lymphocytes 17.7 % (20.5-51.1); % Neutrophils 62.1 % (42.2-75.2); Absolute Eosinophils 0.1 10^3/uL (0-0.7); Absolute Immature Granulocytes 0.1 10^3/uL (0-0.05); Absolute Neutrophils 3.5 10^3/uL (1.4-6.5); Hematocrit 29.9 % (39.0-52.0); Hemoglobin 8.7 g/dL (13.0-18.0); Mean Corpuscular Hgb 20.3 pg (27.0-31.0); Mean Corpuscular Volume 69.9 fL (80.0-94.0); Mean Platelet Volume 8.3 fL (7.4-10.4); Nucleated Red Blood Cells % 0 % (-); Platelet Count 151 10^3/uL (130-400); Red Blood Cell Count 4.29 10^6/uL (4.70-6.10); Red Cell Dist. Width 23.5 % (11.5-14.5); White Blood Cell Count 5.7 10^3/uL (4.8-10.8)
[2024-08-17 09:19] LABS: INR 1.36; PT 17.2 Sec (11.4-14.6)
[2024-08-17 09:43] LABS: Acanthocytes FEW; Anisocytosis 1+; Hypochromasia 2+; Normal RBC Morphology No; Ovalocytes 1+; Polychromasia 1+; Target Cells 1+
[2024-08-17 10:36] LABS: Body Fluid Mononuclear 92.1 %; Body Fluid Polymorphonuclear 7.9 %; Body Fluid WBC 165 /CUMM
[2024-08-17 10:50] LABS: Body Fluid Second Tech SS
[2024-08-17 11:18] LABS: ALT (SGPT) 19 U/L (0-50); AST (SGOT) 71 U/L (17-59); Albumin 3.1 g/dl (3.5-5.0); Alkaline Phosphatase 129 U/L (38-126); Blood Urea Nitrogen 11 mg/dl (9-20); Calcium 8.2 mg/dl (8.4-10.2); Carbon Dioxide 26 mmol/L (22-30); Chloride 99 mmol/L (98-107); Glucose 78 mg/dl (70-99); Sodium 136 mmol/L (135-145); Total Bilirubin 0.9 mg/dl (0.2-1.3); Total Protein 6.7 g/dl (6.3-8.2); eGFR > 60.00
[2024-08-19 13:13] LABS: AFP Male/Tumor Marker 2.54 ng/ml
== END ==
LOC: RADI 07:23
PROVIDERS: ATTENDING PHYSICIAN Specialist
DX: R18.8 Other ascites (principal)
CPT/HCPCS: 36415; 49083; 80053; 82105; 85025; 85610; 87015; 87070; 87205; 89051

== ENCOUNTER 2024-08-17 09:11 | Outpatient (RCR) | payer OTHER, SELFPAY ==
[2024-08-11 09:00] VITALS: BP 131/69
[2024-08-11] MEDS: FLEXBUMIN 100 IV ×2 (09:16→11:05)
[2024-08-11 09:22] VITALS: BP 131/69
[2024-08-11 11:05] VITALS: BP 130/64
[2024-08-11 12:37] VITALS: BP 114/64
[2024-08-11] MEDS: FLEXBUMIN 50 IV (12:38)
[2024-08-11 13:40] VITALS: BP 116/57
[2024-08-17 09:20] VITALS: BP 134/56
[2024-08-17] MEDS: FLEXBUMIN 100 IV (09:20)
[2024-08-17 09:23] VITALS: BP 134/56
[2024-08-17] MEDS: FLEXBUMIN 50 IV (11:01)
[2024-08-17 11:02] VITALS: BP 108/45
[2024-08-17 12:02] VITALS: BP 119/58
== END 2024-08-19 08:30 | disposition home or self-care (01) ==
LOC: OID 09:11
PROVIDERS: ATTENDING PHYSICIAN Nurse Practitioner Adult Health
DX: K70.31 Alcoholic cirrhosis of liver with ascites (principal); I85.11 Secondary esophageal varices with bleeding; F17.210 Nicotine dependence, cigarettes, uncomplicated
CPT/HCPCS: 96365; 96366; P9047

== ENCOUNTER → 2024-08-23 06:19 | Day surgery (SDC) | payer OTHER, SELFPAY | LOC: GI 06:19 | PROVIDERS: ATTENDING PHYSICIAN Specialist; FAMILY PHYSICIAN Internal Medicine | DX: I85.01 Esophageal varices with bleeding (principal); K76.6 Portal hypertension; K31.89 Other diseases of stomach and duodenum | CPT/HCPCS: 43244 ==

== ENCOUNTER → 2024-08-25 07:11 | Outpatient (REF) | payer OTHER, SELFPAY ==
[2024-08-25 08:37] VITALS: BP 136/87; BP_SYST 88
[2024-08-25 09:44] VITALS: BP 128/77; BP_SYST 89
[2024-08-25 09:52] VITALS: BP 128/77
[2024-08-25 10:09] LABS: Body Fluid Mononuclear 91.8 %; Body Fluid Polymorphonuclear 8.2 %; Body Fluid WBC 146 /CUMM
[2024-08-25 10:14] LABS: Body Fluid Second Tech SS
== END ==
LOC: RADI 07:11
PROVIDERS: ATTENDING PHYSICIAN Specialist
DX: R18.8 Other ascites (principal)
CPT/HCPCS: 49083; 87015; 87070; 87205; 89051

== ENCOUNTER → 2024-09-01 07:30 | Outpatient (REF) | payer OTHER, SELFPAY ==
[2024-09-01 07:40] VITALS: BP 144/86; BP_SYST 70
[2024-09-01 08:32] VITALS: BP 123/75; BP_SYST 67
[2024-09-01 08:45] VITALS: BP 123/75
[2024-09-01 09:36] LABS: Body Fluid Mononuclear 92.1 %; Body Fluid Polymorphonuclear 7.9 %; Body Fluid WBC 177 /CUMM
[2024-09-01 09:46] LABS: Body Fluid Second Tech AMA
== END ==
LOC: RADI 07:30
PROVIDERS: ATTENDING PHYSICIAN Specialist
DX: R18.8 Other ascites (principal)
CPT/HCPCS: 49083; 87015; 87070; 87205; 89051

== ENCOUNTER → 2024-09-08 07:19 | Outpatient (REF) | payer OTHER, SELFPAY ==
[2024-09-08 07:42] VITALS: BP 133/87; BP_SYST 77
[2024-09-08 08:40] VITALS: BP 130/77
[2024-09-08 10:42] LABS: Body Fluid Mononuclear 90.4 %; Body Fluid Polymorphonuclear 9.6 %; Body Fluid WBC 177 /CUMM
[2024-09-08 10:50] LABS: Body Fluid Second Tech SS
== END ==
LOC: RADI 07:19
PROVIDERS: ATTENDING PHYSICIAN Specialist
DX: R18.8 Other ascites (principal)
CPT/HCPCS: 49083; 87015; 87070; 87205; 89051

== ENCOUNTER → 2024-09-15 07:20 | Outpatient (REF) | payer OTHER, SELFPAY ==
[2024-09-15 07:45] VITALS: BP 144/92; BP_SYST 75
[2024-09-15 09:00] VITALS: BP 121/73
[2024-09-15 11:33] LABS: Body Fluid WBC 177 /CUMM
[2024-09-15 11:34] LABS: Body Fluid Mononuclear 94.4 %; Body Fluid Polymorphonuclear 5.6 %
[2024-09-15 11:40] LABS: Body Fluid Second Tech AMA
== END ==
LOC: RADI 07:20
PROVIDERS: ATTENDING PHYSICIAN Specialist
DX: R18.8 Other ascites (principal)
CPT/HCPCS: 49083; 87015; 87070; 87205; 89051

== ENCOUNTER 2024-09-15 09:06 | Outpatient (RCR) | payer OTHER, SELFPAY ==
[2024-08-25 10:41] VITALS: BP 137/63
[2024-08-25] MEDS: FLEXBUMIN 100 IV ×2 (10:43→12:35)
[2024-08-25 10:46] VITALS: BP 137/63
[2024-08-25 12:37] VITALS: BP 121/55
[2024-08-25] MEDS: FLEXBUMIN 50 IV (14:19)
[2024-08-25 14:21] VITALS: BP 113/50
[2024-08-25 15:05] VITALS: BP 131/2
[2024-09-01] MEDS: FLEXBUMIN 100 IV ×2 (09:16→11:01)
[2024-09-01 09:17] VITALS: BP 117/65
[2024-09-01 11:04] VITALS: BP 110/60
[2024-09-01] MEDS: FLEXBUMIN 50 IV (12:39)
[2024-09-01 12:40] VITALS: BP 96/44
[2024-09-01 13:30] VITALS: BP 111/47
[2024-09-08 09:05] VITALS: BP 125/68
[2024-09-08] MEDS: FLEXBUMIN 100 IV (09:08)
[2024-09-08 10:17] LABS: % Basophils 0.6 % (0-2); % Eosinophils 1.4 % (0-6); % Immature Granulocytes 0.2 % (0-0.5); % Lymphocytes 17.5 % (20.5-51.1); % Monocytes 13.6 % (1.7-9.3); % Neutrophils 66.7 % (42.2-75.2); Absolute Eosinophils 0.1 10^3/uL (0-0.7); Absolute Lymphocytes 0.9 10^3/uL (1.2-3.4); Absolute Monocytes 0.7 10^3/uL (0.1-0.6); Absolute Neutrophils 3.4 10^3/uL (1.4-6.5); Hemoglobin 9.1 g/dL (13.0-18.0); Mean Corp Hgb Conc. 30.3 g/dL (33.0-37.0); Mean Corpuscular Hgb 20.1 pg (27.0-31.0); Mean Corpuscular Volume 66.4 fL (80.0-94.0); Mean Platelet Volume 8.3 fL (7.4-10.4); Platelet Count 129 10^3/uL (130-400); Red Blood Cell Count 4.52 10^6/uL (4.70-6.10); Red Cell Dist. Width 21.5 % (11.5-14.5); White Blood Cell Count 5.1 10^3/uL (4.8-10.8)
[2024-09-08] MEDS: FLEXBUMIN 50 IV (10:53)
[2024-09-08 10:54] VITALS: BP 107/54
[2024-09-08 10:55] LABS: INR 1.33
[2024-09-08 10:56] LABS: APTT 38.5 Sec (23.4-35.0)
[2024-09-08 11:32] LABS: ALT (SGPT) 11 U/L (0-50); AST (SGOT) 58 U/L (17-59); Albumin 3.2 g/dl (3.5-5.0); Alkaline Phosphatase 140 U/L (38-126); Blood Urea Nitrogen 8 mg/dl (9-20); Carbon Dioxide 29 mmol/L (22-30); Chloride 96 mmol/L (98-107); Glucose 104 mg/dl (70-99); Sodium 134 mmol/L (135-145); Total Protein 7.3 g/dl (6.3-8.2); eGFR > 60.00
[2024-09-08 11:45] VITALS: BP 102/43
[2024-09-15] MEDS: FLEXBUMIN 50 IV (09:18)
[2024-09-15 09:19] VITALS: BP 131/67
[2024-09-15] MEDS: FLEXBUMIN 100 IV (10:14)
[2024-09-15 10:16] VITALS: BP 118/63
[2024-09-15 11:56] VITALS: BP 110/64
== END 2024-09-20 12:13 | disposition home or self-care (01) ==
LOC: OID 09:06
PROVIDERS: ATTENDING PHYSICIAN Nurse Practitioner Adult Health
DX: K70.31 Alcoholic cirrhosis of liver with ascites (principal); I85.11 Secondary esophageal varices with bleeding; F17.210 Nicotine dependence, cigarettes, uncomplicated
CPT/HCPCS: 36415; 80053; 85025; 85610; 85730; 96365; 96366; P9047

== ENCOUNTER → 2024-09-22 07:28 | Outpatient (REF) | payer OTHER, SELFPAY ==
[2024-09-22 08:15] VITALS: BP 137/85; BP_SYST 84
[2024-09-22 10:57] LABS: Body Fluid WBC 176 /CUMM
[2024-09-22 11:41] LABS: Body Fluid Second Tech AMA
== END ==
LOC: RADI 07:28
PROVIDERS: ATTENDING PHYSICIAN Specialist
DX: R18.8 Other ascites (principal)
CPT/HCPCS: 49083; 87015; 87070; 87205; 89051

== ENCOUNTER → 2024-09-29 07:14 | Outpatient (REF) | payer OTHER, SELFPAY ==
[2024-09-29 07:42] VITALS: BP 122/67; BP_SYST 62
[2024-09-29 08:40] VITALS: BP 114/74
[2024-09-29 09:59] LABS: Body Fluid Mononuclear 96.4 %; Body Fluid Polymorphonuclear 3.6 %; Body Fluid WBC 166 /CUMM
[2024-09-29 10:03] LABS: Body Fluid Second Tech AMA
== END ==
LOC: RADI 07:14
PROVIDERS: ATTENDING PHYSICIAN Specialist
DX: R18.8 Other ascites (principal)
CPT/HCPCS: 49083; 87015; 87070; 87205; 89051

== ENCOUNTER 2024-09-29 08:42 | Outpatient (RCR) | payer OTHER, SELFPAY ==
[2024-09-22 09:53] VITALS: BP 141/86
[2024-09-22] MEDS: FLEXBUMIN 50 IV (09:53)
[2024-09-22] MEDS: FLEXBUMIN 100 IV (11:00)
[2024-09-22 11:01] VITALS: BP 108/53
[2024-09-22 12:31] VITALS: BP 113/56
[2024-09-29 09:00] VITALS: BP 141/77
[2024-09-29] MEDS: FLEXBUMIN 100 IV (09:02)
[2024-09-29 09:05] VITALS: BP 141/77
[2024-09-29] MEDS: FLEXBUMIN 50 IV (10:39)
[2024-09-29 10:41] VITALS: BP 97/46
[2024-09-29 11:30] VITALS: BP 100/47
== END 2024-10-21 08:42 | disposition home or self-care (01) ==
LOC: OID 08:42
PROVIDERS: ATTENDING PHYSICIAN Nurse Practitioner Adult Health
DX: K70.31 Alcoholic cirrhosis of liver with ascites (principal); I85.11 Secondary esophageal varices with bleeding; F17.210 Nicotine dependence, cigarettes, uncomplicated
CPT/HCPCS: 96365; 96366; P9047

== ENCOUNTER → 2024-10-06 07:26 | Outpatient (REF) | payer OTHER, SELFPAY ==
[2024-10-06 07:40] VITALS: BP 134/85; BP_SYST 75
[2024-10-06 08:35] VITALS: BP 121/76
[2024-10-06 11:56] LABS: Body Fluid Mononuclear 93.1 %; Body Fluid Polymorphonuclear 6.9 %; Body Fluid WBC 175 /CUMM
[2024-10-06 11:58] LABS: Body Fluid Second Tech AMA
== END ==
LOC: RADI 07:26
PROVIDERS: ATTENDING PHYSICIAN Specialist
DX: R18.8 Other ascites (principal)
CPT/HCPCS: 49083; 87015; 87070; 87205; 89051

== ENCOUNTER → 2024-10-13 07:26 | Outpatient (REF) | payer OTHER, SELFPAY ==
[2024-10-13 07:59] VITALS: BP 131/69; BP_SYST 58
[2024-10-13 08:30] VITALS: BP 110/67
[2024-10-13 09:13] LABS: Body Fluid Mononuclear 80.5 %; Body Fluid Polymorphonuclear 19.5 %; Body Fluid WBC 211 /CUMM
[2024-10-13 09:33] LABS: Body Fluid Second Tech AMA
== END ==
LOC: RADI 07:26
PROVIDERS: ATTENDING PHYSICIAN Specialist
DX: R18.8 Other ascites (principal); N50.3 Cyst of epididymis; I86.1 Scrotal varices; N50.89 Other specified disorders of the male genital organs
CPT/HCPCS: 49083; 76870; 87015; 87070; 87205; 89051; 93976

== ENCOUNTER → 2024-10-20 07:17 | Outpatient (REF) | payer OTHER, SELFPAY ==
[2024-10-20 07:45] VITALS: BP 120/82; BP_SYST 60
[2024-10-20 09:03] LABS: Body Fluid WBC 235 /CUMM
[2024-10-20 09:04] LABS: Body Fluid Mononuclear 85.5 %; Body Fluid Polymorphonuclear 14.5 %
[2024-10-20 09:37] LABS: Body Fluid Second Tech AMA
== END ==
LOC: RADI 07:17
PROVIDERS: ATTENDING PHYSICIAN Specialist
DX: R18.8 Other ascites (principal)
CPT/HCPCS: 49083; 87015; 87070; 87205; 89051

== ENCOUNTER → 2024-10-27 07:25 | Outpatient (REF) | payer OTHER, SELFPAY ==
[2024-10-27 07:45] VITALS: BP 117/70; BP_SYST 59
[2024-10-27 09:03] LABS: Body Fluid Mononuclear 95.6 %; Body Fluid Polymorphonuclear 4.4 %; Body Fluid WBC 226 /CUMM
[2024-10-27 09:06] LABS: Body Fluid Second Tech AMA
== END ==
LOC: RADI 07:25
PROVIDERS: ATTENDING PHYSICIAN Specialist
DX: R18.8 Other ascites (principal)
CPT/HCPCS: 49083; 87015; 87070; 87205; 89051

== ENCOUNTER → 2024-11-04 07:34 | Outpatient (REF) | payer OTHER, SELFPAY ==
[2024-11-04 07:45] VITALS: BP 127/76; BP_SYST 61
[2024-11-04 09:16] VITALS: BP 100/67
[2024-11-04 11:43] LABS: Body Fluid Mononuclear 91.7 %; Body Fluid Polymorphonuclear 8.3 %; Body Fluid WBC 193 /CUMM
[2024-11-04 12:10] LABS: Body Fluid Second Tech HB
== END ==
LOC: RADI 07:34
PROVIDERS: ATTENDING PHYSICIAN Specialist
DX: R18.8 Other ascites (principal)
CPT/HCPCS: 49083; 87015; 87070; 87205; 89051

== ENCOUNTER → 2024-11-10 07:33 | Outpatient (REF) | payer OTHER, SELFPAY ==
[2024-11-10 07:40] VITALS: BP 131/76; BP_SYST 63
[2024-11-10 08:25] VITALS: BP 141/75
[2024-11-10 10:53] LABS: Body Fluid WBC 288 /CUMM
[2024-11-10 10:58] LABS: Body Fluid Second Tech MA
== END ==
LOC: RADI 07:33
PROVIDERS: ATTENDING PHYSICIAN Specialist
DX: R18.8 Other ascites (principal)
CPT/HCPCS: 49083; 87015; 87070; 87205; 89051

== ENCOUNTER → 2024-11-16 07:19 | Outpatient (REF) | payer OTHER, SELFPAY ==
[2024-11-16 07:35] VITALS: BP 126/76; BP_SYST 57
[2024-11-16 08:05] LABS: Hematocrit 34.5 % (39.0-52.0); Hemoglobin 9.8 g/dL (13.0-18.0); Mean Corp Hgb Conc. 28.4 g/dL (33.0-37.0); Mean Corpuscular Volume 70.3 fL (80.0-94.0); Mean Platelet Volume 8.5 fL (7.4-10.4); Platelet Count 182 10^3/uL (130-400); Red Blood Cell Count 4.91 10^6/uL (4.70-6.10); Red Cell Dist. Width 21.3 % (11.5-14.5); White Blood Cell Count 6.3 10^3/uL (4.8-10.8)
[2024-11-16 08:13] LABS: INR 1.38; PT 17.5 Sec (11.4-14.6)
[2024-11-16 08:14] LABS: APTT 34.9 Sec (23.4-35.0)
[2024-11-16 08:30] VITALS: BP 138/81
[2024-11-16 08:31] LABS: ALT (SGPT) 11 U/L (0-50); AST (SGOT) 71 U/L (17-59); Albumin 3.1 g/dl (3.5-5.0); Alkaline Phosphatase 162 U/L (38-126); Blood Urea Nitrogen 7 mg/dl (9-20); Calcium 8.7 mg/dl (8.4-10.2); Carbon Dioxide 30 mmol/L (22-30); Chloride 98 mmol/L (98-107); Glucose 122 mg/dl (70-99); Potassium 4.1 mmol/L (3.5-5.1); Sodium 134 mmol/L (135-145); Total Bilirubin 1.3 mg/dl (0.2-1.3); eGFR > 60.00
[2024-11-16 09:48] LABS: Body Fluid Mononuclear 87.8 %; Body Fluid Polymorphonuclear 12.2 %; Body Fluid WBC 254 /CUMM
[2024-11-16 10:24] LABS: Body Fluid Second Tech EF
== END ==
LOC: RADI 07:19
PROVIDERS: ATTENDING PHYSICIAN Specialist
DX: R18.8 Other ascites (principal)
CPT/HCPCS: 36415; 49083; 80053; 85027; 85610; 85730; 87015; 87070; 87205; 89051

== ENCOUNTER 2024-11-17 06:28 | Day surgery (SDC) | payer OTHER, SELFPAY | END 2024-11-17 11:03 | disposition home or self-care (01) | LOC: GI 06:28 | PROVIDERS: ATTENDING PHYSICIAN Specialist | DX: K22.89 Other specified disease of esophagus (principal); I85.00 Esophageal varices without bleeding | CPT/HCPCS: 43235 ==

== ENCOUNTER → 2024-11-28 07:27 | Outpatient (REF) | payer OTHER, SELFPAY ==
[2024-11-28 07:35] VITALS: BP 126/74; BP_SYST 53
[2024-11-28 09:08] LABS: Body Fluid Mononuclear 88.9 %; Body Fluid Polymorphonuclear 11.1 %; Body Fluid WBC 270 /CUMM
[2024-11-28 09:11] LABS: Body Fluid Second Tech AMA
== END ==
LOC: RADI 07:27
PROVIDERS: ATTENDING PHYSICIAN Specialist
DX: R18.8 Other ascites (principal)
CPT/HCPCS: 49083; 87015; 87070; 87205; 89051

== ENCOUNTER 2024-12-06 18:00 | Emergency (ER) | payer OTHER, SELFPAY ==
[2024-12-06 18:08] VITALS: BP 128/81
[2024-12-06 18:40] LABS: % Eosinophils 1.7 % (0-6); % Immature Granulocytes 0.4 % (0-0.5); % Lymphocytes 23.4 % (20.5-51.1); % Monocytes 12.4 % (1.7-9.3); % Neutrophils 61.1 % (42.2-75.2); Absolute Basophils 0.1 10^3/uL (0-0.2); Absolute Eosinophils 0.1 10^3/uL (0-0.7); Absolute Lymphocytes 1.2 10^3/uL (1.2-3.4); Absolute Monocytes 0.7 10^3/uL (0.1-0.6); Absolute Neutrophils 3.2 10^3/uL (1.4-6.5); Hemoglobin 9.3 g/dL (13.0-18.0); Mean Corpuscular Hgb 20.4 pg (27.0-31.0); Mean Platelet Volume 8.3 fL (7.4-10.4); Nucleated Red Blood Cells % 0 % (-); Platelet Count 179 10^3/uL (130-400); Red Blood Cell Count 4.56 10^6/uL (4.70-6.10); Red Cell Dist. Width 21.1 % (11.5-14.5); White Blood Cell Count 5.3 10^3/uL (4.8-10.8)
[2024-12-06 18:43] LABS: INR 1.43; PT 17.7 Sec (11.4-14.6)
[2024-12-06 18:52] LABS: ALT (SGPT) < 10 U/L (0-50); AST (SGOT) 50 U/L (17-59); Albumin 3.1 g/dl (3.5-5.0); Alkaline Phosphatase 164 U/L (38-126); Blood Urea Nitrogen 7 mg/dl (9-20); Calcium 8.2 mg/dl (8.4-10.2); Carbon Dioxide 27 mmol/L (22-30); Chloride 107 mmol/L (98-107); Glucose 107 mg/dl (70-99); Potassium 4.1 mmol/L (3.5-5.1); Sodium 141 mmol/L (135-145); Total Bilirubin 0.8 mg/dl (0.2-1.3); Total Protein 8.6 g/dl (6.3-8.2); eGFR > 60.00
--- NOTE | 2024-12-06 22:15 | ED.GENMED ---
History of Present Illness
General
Chief Complaint: Abdominal Symptoms
Source: patient
Exam Limitations: none
Time Seen by Provider: 12/06/24 22:13
Nursing documentation reviewed up to this point in time: agreed with
History of Present Illness
History of Present Illness:
49-year-old male presents emergency department with 3 days of increased scrotal swelling and possibly worsening jaundice. Patient has a history of alcoholic cirrhosis and gets biweekly therapeutic paracentesis. Patient states that he is due for
his next paracentesis on but feels that his abdomen is not too bad and is thinking about canceling it. He is here because he has had increased scrotal swelling. He reports that his scrotum is the size of a grapefruit. He also is
concerned about worsening jaundice. Patient denies nausea or vomiting. Reports no blood in his stool. He does admit to drinking occasional alcoholic beverages but cannot quantify that statement. He states that he has been undergoing more
physical labor lately helping his uncle clean his house.
Vital signs are stable. Patient not hypoxic
Nursing note reviewed. I agree with nursing documentation up to this point in time.
Home Meds and allergies reviewed.
NUMBER AND COMPLEXITY OF PROBLEMS ADDRESSED AT THE ENCOUNTER
� Chronic conditions affecting care: Cirrhosis, acute on chronic anemia, iron deficiency anemia, chronic transaminitis, alcohol abuse, chronic thrombocytopenia, esophageal varices with history of GI bleed, tobacco abuse, anxiety
depression, former opioid abuser
� Acute Exacerbation and/or Progression of Chronic Illness: Cirrhosis
� Differential Diagnosis includes:
AMOUNT AND/OR COMPLEXITY OF DATA TO BE REVIEWED AND ANALYZED
I performed an independent evaluation of the following and my interpretation is:
EKG:
Pulse Ox: Not Hypoxic
[place] Observer: Sinus Rhythm
CT:
X-rays:
Ultrasound:IMPRESSION: Bilateral scrotal skin thickening and diffuse scrotal edema, with significant interval increase from previous examination.
Asymmetric increased color flow of the right testis compared to the left, suggestive of orchitis. Also, there are bands of decreased echogenicity extending to the right testis, increased from previous examination, suggesting edema.
Two small right epididymal head cysts.
Left-sided varicocele.
Laboratory Studies: Hemoglobin is 9.3 which is approximately the same as the last 3 visits. MCV is also roughly similar and low. Transaminases are similar. T. bili is 0.8.
Other:
Review of other/old records:
Clinical information was obtained by an independent historian:
Prescriptions/Medications Considered but not given:
Further testing considered but not performed:
RISK OF COMPLICATIONS AND/OR MORBIDITY OR MORTALITY OF PATIENT MANAGEMENT
Social determinants of health affecting care: poor Social Support
Discussion with other providers:
Escalation of care including admission/observation vs risk of discharge considered: After being observed in the emergency department, patient is
CRITICAL CARE NOTE:
Total Time (exclusive of procedures):
Update:
Past History
Past History
ED Past Medical History: Psychiatric (Anxiety/depression, GI bleed) and Other (History of esophageal varices, liver cirrhosis)
ED Past Surgical History: None
Patient has exhibited threatening behavior?: No
Social History
Tobacco: Smoker
Alcohol: Chronic alcoholic
Drug: Former user
Personal: Other
Living: with family
Employment: Employed
Family History
Family History: Other
Review of Systems
Review of Systems
Allergies reviewed?: Yes
All Other Systems: ROS reviewed and negative except as documented in HPI and ROS
Constitutional: Reports fatigue
EENT: Reports no symptoms
Respiratory: Reports no symptoms
Cardiac: Reports no symptoms
ABD/GI: Reports no symptoms
: Reports other (Scrotal swelling)
Musculoskeletal: Reports no symptoms
Skin: Reports other (Jaundice)
Neurological: Reports no symptoms
Endocrine: Reports no symptoms
Hematologic/Lymphatic: Reports no symptoms
Psychiatric: Reports no symptoms
Phy Exam
General Physical Exam
General Presentation: mild distress
General age: appears older than age
General Skin: warm and other (Jaundiced)
General Habitus: normal
General Mental: alert
General Hydration: appears well hydrated
ENT Exam
ENT Exam: EOMI, pharynx normal, neck supple and normocephalic
Eye Exam
Eye Exam: PERRL, cornea clear and conjunctiva normal
Cardiovascular Exam
Cardiovascular Exam: regular rate/rhythm
Pulmonary Exam
Pulmonary Exam: lungs clear, no respiratory distress and no cough
Gastrointestinal Exam
Gastrointestinal Exam: normal bowel sounds, non tender, soft, no organomegaly, no pulsatile mass and non distended
Genitourinary Exam Male
Exam Male: circumcised and other (Scrotal swelling bilateral)
Testicular Exam: Scrotal swollen: Bilateral
Neurological Exam
Neurological Exam: alert and oriented x3
Musculoskeletal Exam
Musculoskeletal Exam: full ROM and no edema
Skin Exam
Skin Exam: jaundice and other (Multiple tattoos. Bactrim)
Psychiatric Exam
Psychiatric Exam: normal mood/affect and anxious
Course
Orders/Labs/Results
Orders:
Orders
12/06/24 18:13
US Scrotum Urgent
Comment:
Reason For Exam: scotal edema
12/06/24 18:19
Complete Blood Count/With Diff Urgent
Comprehensive Metabolic Panel Urgent
PT/INR [Prothrombin Time] Urgent
12/06/24 22:31
CT Abd/pelvis W Iv Cont Urgent
Comment:
Reason For Exam: incr swelling, scrotal edema
Abnormal Lab Results
12/06/24
18:19
RBC 4.56 L 10^6/uL
(4.70-6.10)
Hgb 9.3 L g/dL
(13.0-18.0)
Hct 31.0 L %
(39.0-52.0)
MCV 68.0 L fL
(80.0-94.0)
MCH 20.4 L pg
(27.0-31.0)
MCHC 30.0 L g/dL
(33.0-37.0)
RDW 21.1 H %
(11.5-14.5)
Absolute Monos (auto) 0.7 H 10^3/uL
(0.1-0.6)
Monocytes % 12.4 H %
(1.7-9.3)
PT 17.7 H Sec
(11.4-14.6)
BUN 7 L mg/dl
(9-20)
Creatinine 0.6 L mg/dL
(0.7-1.3)
Glucose 107 H mg/dl
(70-99)
Calcium 8.2 L mg/dl
(8.4-10.2)
Alkaline Phosphatase 164 H U/L
(38-126)
Total Protein 8.6 H g/dl
(6.3-8.2)
Albumin 3.1 L g/dl
(3.5-5.0)
12/06/24 18:19
12/06/24 18:19
Vital Signs
Initial and Last Documented VS:
Initial Vital Signs
Temp Pulse Resp BP Pulse Ox
98.7 F 68 17 128/81 98
12/06/24 18:08 12/06/24 18:08 12/06/24 18:08 12/06/24 18:08 12/06/24 18:08
Last Documented Vital Signs
Temp Pulse Resp BP Pulse Ox
98.7 F 56 18 147/95 97
12/06/24 18:08 12/06/24 23:56 12/06/24 23:56 12/06/24 23:56 12/06/24 23:56
*Critical Care Note
Total Time (30-74mins, 75-104mins- exclusive of procedures): Not Applicable
Update Note
Update Note:
IMPRESSION:
1. Moderate ascites with partial visualization of likely bilateral hydroceles.
2. Diffuse colonic and small bowel wall thickening, may be related to portal enterocolopathy. No bowel obstruction. Normal gallbladder and appendix.
Incidentals:
-Moderate stool burden
- No obstructive uropathy.
-Cirrhotic appearing liver.
- No abdominal aortic aneurysm.
- No acute osseous abnormality.
-Bibasilar atelectasis. Prominent gastroesophageal varices
Patient has a appointment for paracentesis scheduled for this .
Patient wishes to be discharged. He is dealing with dying and and helping his uncle.
He will provide scrotal support and monitor the size of the scrotum.
Patient to be discharged home.
ED Attending Note
-
Portions of this chart may have been created with voice recognition software.� Occasional wrong word or��sound alike� substitutions may have occurred due to the inherent limitations of voice recognition software.
Discharge Plan
Departure
Patient Disposition: Home (Routine Discharge)
Date of Disposition: 12/06/24
Time of Disposition: 23:48
Patient with high blood pressure during this ER visit?: Yes
Condition: Good
Discharge Problem:
Scrotal swelling, Iron deficiency anemia, History of esophageal varices, Alcoholic cirrhosis of liver with ascites
Instructions: Fluid in the belly from cirrhosis (ascites), Diet for adults with cirrhosis
Prescriptions:
No Action
escitalopram oxalate 20 MG tablet
20 mg PO DAILY
buprenorphine-naloxone 8-2 mg Film
0.5 film SUBLINGUAL DAILY
acetaminophen [Tylenol] 325 mg Tablet
650 mg PO DAILYPRN PRN (Reason: mild pain)
thiamine HCl (vitamin B1) 100 mg tablet
100 mg PO BID
furosemide 40 mg Tablet
60 mg PO DAILY
spironolactone 100 mg Tablet
150 mg PO DAILY
pantoprazole 40 mg tablet,delayed release (DR/EC)
40 mg PO BID
carvedilol 3.125 mg Tablet
3.125 mg PO BID
Referrals:
Siva Tovar MD [Active] -
NONE,* [Family Provider] -
Activity Restrictions/Additional Instructions:
Please keep your appointment for paracentesis scheduled for this .
It was a pleasure meeting you and taking part in your care. We hope for your continued healing and wellness.
Please read discharge instructions in their entirety. However, they are for general education and may not describe your exact diagnosis at discharge. Information on your ER visit and medical conditions were discussed with you along with appropriate
follow up information...
If indicated, please take your medications as instructed and indicated on discharge paperwork.
Please schedule a follow up appointment as directed. Call to schedule an appointment
Please return to the emergency department with ANY change in, persisting, or worsening of symptoms. If any of your symptoms do not improve, or persist, or become more severe within 6-12 hours, please return to the emergency department for further
care.
Please return to the emergency department if you develop a headache, neck pain/stiffness, fever greater than 100.4F, chest pain, shortness of breath, persistent nausea, vomiting, slurred speech, difficulty walking, numbness/tingling, weakness, signs
of infection or any other symptoms that are worrisome to you.
If you have any questions or concerns please do not hesitate to call the Hospital at or E-mail me directly at [email or web address]
Interventions
Interventions:
*Risk Screen - Suicide Last Done: 12/06/24 18:09
*General Assessment Last Done: 12/06/24 18:09
*Neglect/Abuse Screening Last Done: 12/06/24 18:09
*ED- Fall Risk Assessment Last Done: 12/06/24 23:56
*ED COVID-19 Vaccine History Last Done: 12/06/24 18:09
*Nursing Disposition Last Done: 12/06/24 23:56
UG-Gpyjxe-Pgzjurmkmx Assessment Last Done: 12/06/24 22:32
Discharge Date and Time
Discharge Date/Time: 12/06/24 23:57
Print Language: PASHTO
[2024-12-06 22:42] VITALS: BP 130/85
[2024-12-06 23:56] VITALS: BP 147/95
== END 2024-12-06 23:57 | disposition home or self-care (01) ==
LOC: EMR 18:00
PROVIDERS: Emergency Medicine; EMERGENCY PHYSICIAN Student in an Organized Health Care Education/Training Program
DX: D50.9 Iron deficiency anemia, unspecified (principal); N50.89 Other specified disorders of the male genital organs; R17 Unspecified jaundice; I86.1 Scrotal varices; R03.0 Elevated blood-pressure reading, without diagnosis of hypertension; K70.31 Alcoholic cirrhosis of liver with ascites; I86.4 Gastric varices; F41.9 Anxiety disorder, unspecified; F32.A Depression, unspecified; Z60.8 Other problems related to social environment; F11.11 Opioid abuse, in remission; F17.200 Nicotine dependence, unspecified, uncomplicated
CPT/HCPCS: 99284; 74177; 76870; 80053; 85025; 85610; 93976; Q9967

== ENCOUNTER → 2024-12-08 07:33 | Outpatient (REF) | payer OTHER, SELFPAY ==
[2024-12-08 07:45] VITALS: BP 131/79; BP_SYST 71
[2024-12-08 08:20] VITALS: BP 128/68
[2024-12-08 08:41] LABS: Body Fluid Mononuclear 61.5 %; Body Fluid Polymorphonuclear 38.5 %; Body Fluid WBC 380 /CUMM
[2024-12-08 08:43] LABS: Body Fluid Second Tech CF
== END ==
LOC: RADI 07:33
PROVIDERS: ATTENDING PHYSICIAN Specialist
DX: R18.8 Other ascites (principal)
CPT/HCPCS: 49083; 87015; 87070; 87205; 89051

== ENCOUNTER → 2024-12-22 08:42 | Outpatient (REF) | payer OTHER, SELFPAY | LOC: RADI 08:42 | PROVIDERS: ATTENDING PHYSICIAN Specialist | DX: R18.8 Other ascites (principal); Z53.8 Procedure and treatment not carried out for other reasons | CPT/HCPCS: 76705 ==

== ENCOUNTER 2025-07-13 17:17 | Emergency (ER) | payer OTHER, SELFPAY ==
[2025-07-13 17:19] VITALS: BP 175/99
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
[2025-07-13 18:31] LABS: Hematocrit 35.4 % (39.0-52.0); Hemoglobin 10.5 g/dL (13.0-18.0); Mean Corp Hgb Conc. 29.7 g/dL (33.0-37.0); Mean Corpuscular Volume 71.2 fL (80.0-94.0); Nucleated Red Blood Cells % 0 % (-); Platelet Count 114 10^3/uL (130-400); Red Cell Dist. Width 21.2 % (11.5-14.5)
[2025-07-13 18:40] LABS: APTT 36.2 Sec (23.4-35.0); Chloride 107 mmol/L (98-107); INR 1.38; PT 17.5 Sec (11.4-14.6); Potassium 3.9 mmol/L (3.5-5.1); Sodium 142 mmol/L (135-145)
[2025-07-13 18:44] LABS: ALT (SGPT) 16 U/L (0-50); AST (SGOT) 103 U/L (17-59); Acetaminophen < 10 ug/ml (10-30); Albumin 4.0 g/dl (3.5-5.0); Alkaline Phosphatase 150 U/L (38-126); Blood Urea Nitrogen 8 mg/dl (9-20); Calcium 8.5 mg/dl (8.4-10.2); Carbon Dioxide 25 mmol/L (22-30); Glucose 114 mg/dl (70-99); Salicylate < 1.0 mg/dl (2.0-20.0); Total Protein 9.5 g/dl (6.3-8.2); eGFR > 60.00
[2025-07-13] MEDS: ZOFRAN ODT (ORALLY DISINTEGRATING) 4 MG PO (22:27)
[2025-07-14] MEDS: COREG 3.125 MG PO (00:27)
[2025-07-14] MEDS: PROTONIX 40 MG PO (00:31)
[2025-07-14] MEDS: ATIVAN 1 MG PO (00:46)
== END 2025-07-14 10:05 ==
LOC: EMR 17:17
PROVIDERS: EMERGENCY PHYSICIAN Emergency Medicine; FAMILY PHYSICIAN Specialist
DX: F32.A Depression, unspecified (principal); R45.851 Suicidal ideations; K70.31 Alcoholic cirrhosis of liver with ascites; F10.20 Alcohol dependence, uncomplicated; Y90.6 Blood alcohol level of 120-199 mg/100 ml; F17.200 Nicotine dependence, unspecified, uncomplicated; Z59.869 Financial insecurity, unspecified; Z63.8 Other specified problems related to primary support group
CPT/HCPCS: 99285; 80053; 80143; 80179; 82077; 85025; 85610; 85730